=== PATIENT | female | born 1970 | race Hispanic/Latino ===

== ENCOUNTER → 2017-12-05 | Outpatient (CLI) | payer OTHER ==
[~2017-12-05] MED LIST: ALLOPURINOL100 MG PO; ALLOPURINOL300 MG PO; AMOXICILLIN250 MG PO; CEPHALEXIN500 M1; CYTRA-2 ORAL S473 ML PO; EFFER-K 20 MEQ20 MEQ PO; LEVAQUIN500 MG PO; M.V.I. ADULT10 ML PO; OXYBUTYNIN CHLOR5 MG PO; PHENDIMETRAZIN105 MG PO; POTASSIUM CHLO20 ME1 PO
--- NOTE | 2017-12-05 14:19 | Diagnostic Imaging Report ---
PROCEDURE:X-RAY ABDOMEN - KUB COMPARISON:CT dated 04/11/17 INDICATIONS:CALCULUS OF THE KIDNEY FINDINGS: There is a non-obstructed bowel-gas pattern. Numerous calcifications overlying the bilateral renal shadows. The largest measures 0.6 cm. There are no acute osseous abnormalities. L5-S1 degenerative changes. The lung bases are clear. CONCLUSION: Numerous calcifications overlying the bilateral renal shadows, consistent with medullary nephrocalcinosis, noted on prior CT. Dictated by: Rashi Arguello M.D. on 12/05/2017 at 14:23 Electronically approved by: Rashi Arguello M.D. on 12/05/2017 at 14:23
== END ==
LOC: RAD 13:21
PROVIDERS: ATTEND Urology
DX: N20.0 Calculus of kidney (principal)
CPT/HCPCS: 74018

== ENCOUNTER → 2018-01-09 | Day surgery (SDC) | payer OTHER ==
[~2018-01-09] MED LIST changes: +CEFTRIAXONE SOD 1 GM VIAL ONE; +DEXAMETHASONE SOD PHOS INJ 4 MG/ML VIAL ONE; +IOPAMIDOL 300MG/ML 50ML INFUS..BTL IV ONE; +LIDOCAINE HCL 2% LOCAL INJ 5 ML SDV VIAL INJ ONE; +MIDAZOLAM HCL 2 MG/2 ML VIAL ONE; +ONDANSETRON HCL INJ 2 MG/ML VIAL ONE; +POTASSIUM CITR10 MEQ PO; +PROPOFOL IV EMULSION 10 MG/ML 20 ML VIAL ONE; +SCOPOLAMINE 1.5 MG PATCH ONE; +SEVOFLURANE INHAL SOLN 250 ML PEN BTL ONE
--- NOTE | 2018-01-09 09:05 | Diagnostic Imaging Report ---
PROCEDURE:X-RAY ABDOMEN - KUB COMPARISON:12/05/2017. INDICATIONS:PREOPERATIVE XRAY FOR LITHOTRIPSY FINDINGS: Unchanged clusters of calcifications projecting over both renal shadows measuring up to 0.6 cm on the right and 0.5 cm on the left. No suspicious calcifications project over the expected ureteral courses. Bowel gas pattern is nonobstructive. Regional skeletal structures are intact. CONCLUSION: bilateral renal calcifications are grossly unchanged relative to 12/05/2017. Dictated by: Randy Ridley M.D. on 01/09/2018 at 7:38 Electronically approved by: Randy Ridley M.D. on 01/09/2018 at 7:38
--- NOTE | 2018-03-10 01:55 | Operative Report ---
DATE OF PROCEDURE: January 09, 2018 PREOPERATIVE DIAGNOSES 1. Left nephrolithiasis. 2. Urinary tract infections. 3. Urge incontinence. POSTOPERATIVE DIAGNOSIS: 1. Left nephrolithiasis. 2. Urinary tract infections. 3. Urge incontinence. 4. Grade-3 cystocele. 5. Grade-1 rectocele. 6. Urethral hypermobility. OPERATIONS PERFORMED: Note these were all staged procedures as part of multistage, multistep process of managing patient's urolithiasis. 1. Left-sided extracorporeal shock lithotripsy (separate procedure performed for the nephrolithiasis). 2. Cystourethroscopy with bilateral ureteral catheterization and retrograde ureteropyelography (separate procedure performed for the urinary tract infections). 3. Interpretation of retrograde ureteropyelography. 4. Supervision of fluoroscopy. No radiologist present. 5. Pelvic examination under anesthesia. ANESTHESIA: General. CLINICAL SUMMARY: Clemencia Garza is a 47-year-old woman with bilateral urolithiasis. She was brought for the above procedures. She is aware of the risks of bleeding, infection, injury to adjacent structures, need for additional procedures, and elected proceed. OPERATIVE PROCEDURE IN DETAIL: Informed consent was verified. Clemencia Garza was properly identified, taken to operating room, placed on the lithotripsy table in supine position. Anesthesia was uneventfully begun. The patient's 5-mm upper caliceal stone on left-hand side, as well as 6-mm lower caliceal stone on left hand side were both localized with biplanar fluoroscopy. Total of 3000 shocks were delivered splitting them between the stones. Fragmentation was noted. The patient was carefully and gently repositioned in dorsal lithotomy position with all pressure points well padded. Her genitalia were prepared and draped in usual sterile fashion. A 22.5-Divehi cystoscope sheath with obturator in place was atraumatically inserted in patient's urethra and bladder was drained. Panendoscopy revealed no suspicious gross lesions, no tumors, no stones, and no diverticula. Normally positioned and configured ureteral orifices were identified. A ureteral catheter was utilized to cannulate each ureter and retrograde ureteropyelography performed. Interpretation of retrograde ureteropyelography: Contrast was instilled in retrograde fashion bilaterally. The left-hand side exhibited filling defects in the upper and lower pole calices, where we treated the patient's stones. We did visualize a stone on the right-hand side. This stone was not treated. The patient's bladder was drained. Cystoscope was withdrawn. Pelvic examination under anesthesia revealed grade-3 cystocele, grade-1 rectocele with urethral hypermobility present. No abnormal palpable masses could be appreciated. The patient was then uneventfully reversed from anesthesia and taken to recovery room in stable condition. There were no complications to procedure. She tolerated the procedure well. Plans will be to return the patient to the operating room for a right ESWL in the near future. Job#: [id number] CQ
== END | disposition home or self-care (01) ==
LOC: OR 06:03
PROVIDERS: ATTEND Urology
DX: N20.0 Calculus of kidney (principal); N39.0 Urinary tract infection, site not specified; N13.30 Unspecified hydronephrosis; N25.89 Other disorders resulting from impaired renal tubular function; N39.41 Urge incontinence; N81.10 Cystocele, unspecified; N81.6 Rectocele; N36.41 Hypermobility of urethra; E66.9 Obesity, unspecified; Z68.41 Body mass index [BMI] 40.0-44.9, adult
CPT/HCPCS: 50590; 74018; 81025; J0696; J1100; J2001; J2250; J2405; Q9967

== ENCOUNTER → 2018-03-13 | Day surgery (SDC) | payer OTHER ==
[~2018-03-13] MED LIST changes: +FENTANYL CITRATE/PF 100MCG/2 ML INJ ONE; -IOPAMIDOL 300MG/ML 50ML INFUS..BTL IV ONE; +MULTI-VITAMIN1 EACH; +POTASSIUM CHLORIDE 20MEQ/100ML 100 ML IV ONE; -SCOPOLAMINE 1.5 MG PATCH ONE
[2018-03-13 09:40] LABS: ANION GAP 13.8 mmol/L (8-16)
[2018-03-13 09:42] LABS: POTASSIUM 2.8 mmol/L (3.6-5.1)
[2018-03-13 09:53] LABS: CALCIUM 10.2 mg/dL (8.4-10.2)
--- NOTE | 2018-03-13 12:37 | Diagnostic Imaging Report ---
PROCEDURE:X-RAY ABDOMEN - KUB COMPARISON:KUB 12/05/[address] 04/11/2017. INDICATIONS:PRE OPERATIVE KUB FOR KIDNEY STONES FINDINGS: Numerous bilateral renal calcifications are noted, measuring up to 6 mm on the right and 5 mm on the left. There is a non-obstructive bowel-gas pattern. Moderate amount of stool in the colon. There are no acute osseous abnormalities. The lung bases are clear. CONCLUSION: Numerous calcifications overlying the bilateral renal shadows, consistent with previously demonstrated medullary nephrocalcinosis on CT. Dictated by: MATHEUS LZU M.D. on 03/13/2018 at 9:07 Electronically approved by: MATHEUS LUZ M.D. on 03/13/2018 at 9:07
[2018-03-13 13:30] VITALS: BP 125/73
--- NOTE | 2018-04-21 01:56 | Operative Report ---
DATE OF PROCEDURE: March 13, 2018 PREOPERATIVE DIAGNOSIS: Right nephrolithiasis. POSTOPERATIVE DIAGNOSIS: Right nephrolithiasis. OPERATIONS PERFORMED 1. Staged right-sided extracorporeal shock wave lithotripsy. 2. Supervision of fluoroscopy. No radiologist present. ANESTHESIA: General. COMPLICATIONS: None. CLINICAL SUMMARY: Clemencia Garza is a 47-year-old woman with recurrent bilateral nephrolithiasis. She is brought for a staged treatment. She is aware of the risks of bleeding, infection, injury to adjacent structures, need for additional procedures and elected to proceed. OPERATIVE PROCEDURE IN DETAIL: Informed consent was verified. Clemencia Garza was properly identified, taken to the operating room, placed on the lithotripsy table in supine position. Anesthesia was uneventfully begun. The patient's right upper pole and right middle pole stones were localized with biplanar fluoroscopy. A total of 3000 shocks were delivered with fragmentation noted. We did not treat the right lower pole and we did not treat the left side. The patient was then uneventfully reversed from anesthesia and taken to recovery room in stable condition. There were no complications during the procedure. She tolerated the procedure well. Explicit postop instructions were given. We will return the patient back to the operating room to perform another unilateral ESWL. Job#: [id number] GE cc:LINDA ISLAS MD
== END | disposition home or self-care (01) ==
LOC: OR 07:22
PROVIDERS: ATTEND Urology
DX: N20.0 Calculus of kidney (principal); N25.89 Other disorders resulting from impaired renal tubular function
CPT/HCPCS: 36415; 50590; 74018; 80048; 81025; J0696; J1100; J2001; J2250; J2405; J3480

== ENCOUNTER → 2018-07-10 | Day surgery (SDC) | payer OTHER ==
[~2018-07-10] MED LIST changes: -CEFTRIAXONE SOD 1 GM VIAL ONE; +CEFTRIAXONE SOD 1 GM/NS 50 ML 50 ML IV ONE; -FENTANYL CITRATE/PF 100MCG/2 ML INJ ONE; -ONDANSETRON HCL INJ 2 MG/ML VIAL ONE; +ONDANSETRON HCL INJ 2MG/ML 2ML 2 MG/ML VIAL ONE; -POTASSIUM CHLORIDE 20MEQ/100ML 100 ML IV ONE
--- NOTE | 2018-07-10 08:58 | Diagnostic Imaging Report ---
Abdomen, 2 views dated 07/10/2018 at 8:23 AM. History: Renal stones. Comparison: KUB dated 03/13/2018 Findings: Multiple renal stones are present overlying both renal outlines. The largest is in the right lower pole measuring 8.2 mm. The intestinal gas pattern is nonobstructive. There no masses. The osseous structures are intact. IMPRESSION: Bilateral renal stones. Signed by: Dr. Juni Schroeder DO on 07/10/2018 8:55 AM
[2018-07-10 10:30] VITALS: BP 110/62
--- NOTE | 2018-08-03 10:08 | Operative Report ---
DATE OF PROCEDURE: 07/10/2018 SURGEON: Vince Barnett MD PREOPERATIVE DIAGNOSIS: Nephrolithiasis. POSTOPERATIVE DIAGNOSIS: Nephrolithiasis. OPERATIONS PERFORMED: 1. Staged left-sided extracorporeal shockwave lithotripsy. 2. Supervision of fluoroscopy, no radiologist was present. ANESTHESIA: General. COMPLICATIONS: None. CLINICAL SUMMARY: Clemencia Garza is a 47-year-old woman with nephrolithiasis. She was brought for a staged procedure. She is aware of the risks of bleeding, infection, injury to the adjacent structures, need for additional procedures, and elected to proceed. PROCEDURE IN DETAIL: Informed consent was verified. Clemencia Garza was preoperatively identified, taken to the operating room, and placed on the lithotripsy table in supine position. Anesthesia was uneventfully begun. The patient's left nephrolithiasis was localized with biplanar fluoroscopy. Total of 3000 shocks were delivered to the upper calyceal and mid calyceal stones with excellent fragmentation. The patient was then uneventfully reversed from anesthesia and taken to the recovery room in stable condition. There were no complications to the procedure. The patient tolerated the procedure well. We will plan on returning the patient to the operating room in about a month for another ESWL. Vince Barnett MD [place]/MODL /[id number] cc: Lavon Au MD
== END | disposition home or self-care (01) ==
LOC: OR 07:21
PROVIDERS: ATTEND Urology
DX: N20.0 Calculus of kidney (principal); E66.01 Morbid (severe) obesity due to excess calories
CPT/HCPCS: 50590; 74018; 81025; J0696; J1100; J2001; J2250; J2405; J2704

== ENCOUNTER 2019-01-10 14:00 | Inpatient (IN) | payer OTHER ==
[~2019-01-10] VITALS: Ht 157.5 cm; Wt 110.9 kg
[~2019-01-10 14:00] MED LIST changes: -CEFTRIAXONE SOD 1 GM/NS 50 ML 50 ML IV ONE; -DEXAMETHASONE SOD PHOS INJ 4 MG/ML VIAL ONE; -LIDOCAINE HCL 2% LOCAL INJ 5 ML SDV VIAL INJ ONE; -MIDAZOLAM HCL 2 MG/2 ML VIAL ONE; -ONDANSETRON HCL INJ 2MG/ML 2ML 2 MG/ML VIAL ONE; -PROPOFOL IV EMULSION 10 MG/ML 20 ML VIAL ONE; -SEVOFLURANE INHAL SOLN 250 ML PEN BTL ONE
[2019-01-10 15:10] LABS: BILIRUBIN,URINE NEGATIVE (NEGATIVE); CLARITY,URINE CLEAR (CLEAR); COLOR,URINE COLORLESS (YELLOW); KETONES,URINE NEGATIVE (NEGATIVE); LEUKOCYTE ESTERASE ,URINE NEGATIVE (NEGATIVE); NITRITE,URINE NEGATIVE (NEGATIVE); PROTEIN,URINE DIPSTICK 1+ (NEGATIVE); URINE UROBILINOGEN 0.2 mg/dL (0.2 - 1)
[2019-01-10 15:11] LABS: PREGNANCY TEST, URINE NEGATIVE (NEGATIVE)
[2019-01-10 15:17] LABS: RBC,URINE >50 /HPF (0-5)
[2019-01-10 15:18] LABS: BACTERIA,URINE FEW /HPF; EPITHELIAL CELLS,URINE MANY /LPF
--- NOTE | 2019-01-10 17:04 | Diagnostic Imaging Report ---
CT Abdomen and Pelvis without contrast INDICATION: Flank pain, history of stones TECHNIQUE: Thin collimation axial images obtained from the diaphragm to the level of the pubic symphysis without nonionic intravenous contrast. Dose reduction techniques used: Automated exposure control, adjustment of the mAs and/or kVp according to patient size, standardized low-dose protocol, and/or iterative reconstruction technique. RADIATION DOSE: Total DLP: 889.5 mGy*cm Estimated effective dose: (DLP x 0.015 x size factor) mSv CTDIvol has been reviewed. It is below the limits set by the Radiation Protocol Committee (RPC). COMPARISON: CT abdomen/pelvis 04/11/2017. ABDOMEN FINDINGS: Lung Bases: Clear. The visualized portion of the mediastinum is normal. Liver: Mild steatosis. No mass. Gallbladder: Present and appears normal. No ductal dilatation. Pancreas: Normal attenuation without mass. Spleen: Normal size without mass. Adrenal Glands: No evidence for mass. Kidneys: Right: Medullary nephrocalcinosis with fullness of the renal collecting system and ureter. No perinephric inflammation. No cortical mass. Left: Medullary nephrocalcinosis. No cortical mass or hydronephrosis Lymph Nodes: No enlarged abdominal or retroperitoneal lymph nodes.. Aorta: Normal in diameter. PELVIS FINDINGS: Bowel: Stomach: Normal. Small Bowel: Normal in caliber with normal wall thickness. Large Bowel: Normal in caliber with normal wall thickness. Appendix: Normal. Bladder: Well distended. No mural thickening or calculus. Ureters: Right ureter is distended throughout its course. Calculus in the distal ureter measures 12 mm. Left ureter is normal in diameter throughout its course. However, there is a calculus in the proximal ureter measuring 4 mm. The uterus is present and normal in morphology. No adnexal mass. Peritoneum/retroperitoneum: No free fluid or fluid collection. Bones: No focal osseous lesions. Mild degenerative changes of the spine and SI joints.. IMPRESSION: 1. Bilateral ureteral calculi. Calculus in the distal right ureter is obstructing. Moderate right hydroureteronephrosis. 2. Bilateral intrarenal calculi consistent with medullary nephrocalcinosis. 3. Mild steatosis. Signed by: Dr. Renee Ochoa MD on 01/10/2019 5:00 PM
[2019-01-10 17:41] LABS: BASOPHILS % 0.4 % (0.0-1.0); EOSINOPHILS # (AUTO) 0.1 (0.0-0.4); EOSINOPHILS % 0.8 % (0.0-6.0); HEMATOCRIT 47.8 % (34.2-44.1); HEMOGLOBIN 15.1 g/dL (12.0-16.0); LYMPHOCYTES # (AUTO) 1.3 (1.0-3.2); MEAN CORPUSCULAR HEMOGLOBIN 29.7 pg (28-32); MEAN CORPUSCULAR HGB CONC 31.6 g/dL (31-35); MEAN CORPUSCULAR VOLUME 94.1 fL (81-99); MONOCYTES # (AUTO) 0.7 (0.2-0.8); MONOCYTES % 6.9 % (4.4-11.3); NEUTROPHILS # (AUTO) 8.4 (2.1-6.9); NEUTROPHILS % 79.3 % (38.7-80.0); PLATELET COUNT 276 x10e3/uL (140-360); RED BLOOD COUNT 5.08 x10e6/uL (3.6-5.1); RED CELL DISTRIBUTION WIDTH 13.8 % (11.7-14.4)
[2019-01-10 18:13] LABS: ALBUMIN 3.8 g/dL (3.5-5.0); ALBUMIN/GLOBULIN RATIO 0.9 (0.8-2.0); ANION GAP 16.3 mmol/L (8-16); CREATININE, SERUM 2.41 mg/dL (0.57-1.11); POTASSIUM 3.3 mmol/L (3.5-5.1)
[2019-01-10] MEDS ORDERED: ONDANSETRON HCL INJ 2MG/ML 2ML 2 MG/ML VIAL IV PRN (18:30)
[2019-01-10] MEDS ORDERED: POTASSIUM CHLORIDE 20 MEQ TAB CR PO STA (18:40)
[2019-01-10] MEDS ORDERED: SODIUM CHLORIDE 0.9% 1000ML 1,000 ML ONE (18:50)
[2019-01-10] MEDS: SODIUM CHLORIDE 0.9% 1000ML 1,000 ML IV SCH (18:54)
[2019-01-10] MEDS: CEFTRIAXONE SOD 1 GM/NS 50 ML 50 ML IV SCH (18:54)
[2019-01-10 20:35] VITALS: BP 143/72
--- NOTE | 2019-01-10 21:12 | NUR ---
Pt resting comfortably in bed. Pt c/o right sided flank pain 4/10 at this time but does not want pain medication. Bed is in low locked position and call light is in reach.
[2019-01-11] VITALS (9 sets, daily range): BP systolic 102–132; BP diastolic 51–61
[2019-01-11] MEDS: CEFTRIAXONE SOD 1 GM/NS 50 ML 50 ML IV SCH ×2 (05:46→17:28)
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
--- NOTE | 2019-01-11 07:05 | NUR ---
REPORT GIVEN TO KEYANNA AMARAL AT THIS TIME. PT RESTING IN BED. CALL LIGHT IS IN REACH.
--- NOTE | 2019-01-11 07:10 | NUR ---
PT OFF UNIT FOR OR PROCEDURE
[2019-01-11] MEDS ORDERED: B&O 60MG R/S 60 MG SUPP PR ONE (07:21)
[2019-01-11] MEDS ORDERED: IOPAMIDOL 610MG/1ML 300 MG/ML VIAL IV ONE (07:21)
--- NOTE | 2019-01-11 08:45 | NUR ---
RECEIVED REPORT FROM JUAN IN PACU AWAITING FOR PT TO ARRIVE TO FLOOR
--- NOTE | 2019-01-11 08:53 | NUR ---
PT RESTING IN BED AA0X3 PT FAMILY AT BEDSIDE PT IS IN NO S.S OF DISTRESS DENIES PAIN PT HAS PHIPPS CATH WITH BLOODY URINE NOTED NO CLOTS EVIDENT PT IS ON IV FLUIDS TO THE LEFT ARM SITE IS CLEAN AND DRY WILL CONTINUE TO MONITOR PT CLOSELY SIDE RAILSX2, BED WHEELS LOCKED, CALL LIGHT IS WITHIN EASY REACH, INSTRUCTED TO CALL FOR ASSISTANCE IF NEEDED
[2019-01-11] MEDS: SODIUM CHLORIDE 0.9% 1000ML 1,000 ML IV SCH ×2 (09:16→22:00)
[2019-01-11] MEDS ORDERED: LIDOCAINE HCL 2% LOCAL INJ 5 ML SDV VIAL INJ ONE (15:00)
[2019-01-11] MEDS ORDERED: DEXAMETHASONE SOD PHOS INJ 4 MG/ML VIAL ONE (15:00)
[2019-01-11] MEDS ORDERED: ONDANSETRON HCL INJ 2MG/ML 2ML 2 MG/ML VIAL ONE (15:00)
[2019-01-11] MEDS ORDERED: PROPOFOL IV EMULSION 10 MG/ML 20 ML VIAL ONE (15:00)
[2019-01-11] MEDS ORDERED: SEVOFLURANE INHAL SOLN 250 ML PEN BTL ONE (15:00)
[2019-01-11] MEDS ORDERED: FENTANYL CITRATE/PF 100MCG/2 ML INJ ONE (15:13)
[2019-01-11] MEDS ORDERED: MIDAZOLAM HCL 2 MG/2 ML VIAL ONE (15:13)
--- NOTE | 2019-01-11 22:00 | NUR ---
Wagner care given.strain urine.v/s stable.stable condition.no pain voiced.
[2019-01-12] VITALS (8 sets, daily range): BP systolic 92–115; BP diastolic 46–63
--- NOTE | 2019-01-12 02:21 | NUR ---
Resting in the bed.phone and calllight within reach.
--- NOTE | 2019-01-12 05:27 | NUR ---
Blood pressure checked 98/60mmof hg.
[2019-01-12] MEDS: CEFTRIAXONE SOD 1 GM/NS 50 ML 50 ML IV SCH ×2 (06:00→17:51)
[2019-01-12 06:07] LABS: BASOPHILS # (AUTO) 0.1 (0.0-0.1); BASOPHILS % 0.5 % (0.0-1.0); EOSINOPHILS # (AUTO) 0.1 (0.0-0.4); EOSINOPHILS % 0.7 % (0.0-6.0); HEMATOCRIT 40.9 % (34.2-44.1); HEMOGLOBIN 13.2 g/dL (12.0-16.0); LYMPHOCYTES # (AUTO) 2.1 (1.0-3.2); LYMPHOCYTES % 20.7 % (18.0-39.1); MEAN CORPUSCULAR HEMOGLOBIN 30.1 pg (28-32); MEAN CORPUSCULAR HGB CONC 32.3 g/dL (31-35); MEAN CORPUSCULAR VOLUME 93.2 fL (81-99); MONOCYTES # (AUTO) 0.6 (0.2-0.8); MONOCYTES % 6.3 % (4.4-11.3); NEUTROPHILS # (AUTO) 7.1 (2.1-6.9); NEUTROPHILS % 71.3 % (38.7-80.0); PLATELET COUNT 248 x10e3/uL (140-360); RED BLOOD COUNT 4.39 x10e6/uL (3.6-5.1); RED CELL DISTRIBUTION WIDTH 14.1 % (11.7-14.4)
[2019-01-12 06:46] LABS: ALBUMIN 2.9 g/dL (3.5-5.0); ALBUMIN/GLOBULIN RATIO 0.9 (0.8-2.0); ANION GAP 12.7 mmol/L (8-16); CALCIUM 8.2 mg/dL (8.4-10.2); CREATININE, SERUM 1.52 mg/dL (0.57-1.11); MAGNESIUM 1.9 MG/DL (1.3-2.1)
[2019-01-12 06:56] LABS: POTASSIUM 2.7 mmol/L (3.5-5.1)
[2019-01-12] MEDS ORDERED: POTASSIUM CHLORIDE 20 MEQ TAB CR PO NR ×2 (07:00→12:00)
--- NOTE | 2019-01-12 07:04 | NUR ---
Bed side shift report given to the oncoming Rn.stable condition.
--- NOTE | 2019-01-12 09:42 | Diagnostic Imaging Report ---
Abdomen , one view History:Follow-up, renal calculus Comparison:CT abdomen and pelvis 01/10/2019 Findings: Nonobstructive bowel gas pattern. No pneumoperitoneum. No definite bowel pneumatosis or portal venous gas. Interval insertion of bilateral ureteral stents, with expected configuration. The previous calculus within the left proximal ureter is not definitively seen. There is a 9 mm oblong calcification along the distal aspect of the right ureteral stent course at the level of the first or second sacral segment which probably represents the previous obstructing calculus within the distal right ureter. Extensive bilateral renal calculi are again noted. Impression: 1. Interval insertion of bilateral ureteral stents, with expected configuration. 2. A 9 mm oblong calcification is noted along the distal aspect of the right ureteral stent at the level the first or second sacral segment. This probably represents the right ureteral obstructing calculus seen on recent CT scan. The left proximal ureteral calculus seen on the previous CT scan is not seen with confidence on this study. Signed by: Harley Farias MD on 01/12/2019 8:57 AM
[2019-01-12] MEDS: SODIUM CHLORIDE 0.9% 1000ML 1,000 ML IV SCH (10:34)
[2019-01-12] MEDS: ACETAMINOPHEN 325 MG TAB PO PRN (11:01)
[2019-01-13] VITALS (9 sets, daily range): BP systolic 99–120; BP diastolic 55–70
[2019-01-13] MEDS: SODIUM CHLORIDE 0.9% 1000ML 1,000 ML IV SCH ×2 (02:35→16:38)
[2019-01-13] MEDS: CEFTRIAXONE SOD 1 GM/NS 50 ML 50 ML IV SCH ×2 (06:17→16:38)
[2019-01-13 06:18] LABS: BASOPHILS # (AUTO) 0.1 (0.0-0.1); BASOPHILS % 0.6 % (0.0-1.0); EOSINOPHILS # (AUTO) 0.1 (0.0-0.4); HEMOGLOBIN 14.3 g/dL (12.0-16.0); LYMPHOCYTES # (AUTO) 1.7 (1.0-3.2); LYMPHOCYTES % 18.9 % (18.0-39.1); MEAN CORPUSCULAR HEMOGLOBIN 30.2 pg (28-32); MEAN CORPUSCULAR HGB CONC 32.5 g/dL (31-35); MEAN CORPUSCULAR VOLUME 92.8 fL (81-99); MONOCYTES # (AUTO) 0.6 (0.2-0.8); MONOCYTES % 6.3 % (4.4-11.3); NEUTROPHILS # (AUTO) 6.6 (2.1-6.9); NEUTROPHILS % 72.6 % (38.7-80.0); PLATELET COUNT 279 x10e3/uL (140-360); RED BLOOD COUNT 4.74 x10e6/uL (3.6-5.1); RED CELL DISTRIBUTION WIDTH 14.4 % (11.7-14.4)
[2019-01-13 07:00] LABS: ALBUMIN 3.2 g/dL (3.5-5.0); ALBUMIN/GLOBULIN RATIO 0.9 (0.8-2.0); ANION GAP 13.4 mmol/L (8-16); CALCIUM 8.3 mg/dL (8.4-10.2); CREATININE, SERUM 1.43 mg/dL (0.57-1.11)
[2019-01-13 07:08] LABS: POTASSIUM 2.4 mmol/L (3.5-5.1)
--- NOTE | 2019-01-13 07:17 | NUR ---
aware of K2.4 and Co2 9. Received orders to give KCL PO
[2019-01-13] MEDS ORDERED: POTASSIUM CHLORIDE 20 MEQ TAB CR PO SCH ×2 (07:30→12:00)
--- NOTE | 2019-01-13 08:50 | NUR ---
20F martinez catheter discontinued as ordered. Tolerated well. Patient due to void
[2019-01-13] MEDS: ACETAMINOPHEN 325 MG TAB PO PRN (08:54)
--- NOTE | 2019-01-13 11:50 | NUR ---
Patient voided without difficulty
[2019-01-13 16:59] LABS: CALCIUM 8.7 mg/dL (8.4-10.2); CREATININE, SERUM 1.27 mg/dL (0.57-1.11)
--- NOTE | 2019-01-13 17:16 | NUR ---
paged on K3.0 CO2 8
[2019-01-13] MEDS ORDERED: POTASSIUM CHLORIDE 20 MEQ TAB CR PO ONE ×2 (17:45→22:00)
--- NOTE | 2019-01-13 17:45 | NUR ---
aware of K3.0 CO2 8. See orders.
--- NOTE | 2019-01-13 19:10 | NUR ---
RECEIVED REPORT, PATIENT AAOX3, STABLE CONDITION. NO NEEDS VOICED AT THIS TIME. INSTRUCTED PATIENT TO CALL FOR ASSISTANCE NEEDED, PATIENT VERBALIZED UNDERSTANDING.
--- NOTE | 2019-01-13 19:20 | NUR ---
Report given to oncoming nurse of patient's status. No s/s of acute distress noted.
[2019-01-14] VITALS (7 sets, daily range): BP systolic 101–137; BP diastolic 53–83
[2019-01-14 06:06] LABS: ALBUMIN 3.2 g/dL (3.5-5.0); ALBUMIN/GLOBULIN RATIO 0.8 (0.8-2.0); ANION GAP 14.3 mmol/L (8-16); CALCIUM 8.7 mg/dL (8.4-10.2); CREATININE, SERUM 1.14 mg/dL (0.57-1.11); POTASSIUM 3.3 mmol/L (3.5-5.1)
[2019-01-14] MEDS: CEFTRIAXONE SOD 1 GM/NS 50 ML 50 ML IV SCH ×2 (06:23→17:00)
[2019-01-14] MEDS: SODIUM CHLORIDE 0.9% 1000ML 1,000 ML IV SCH (07:14)
--- NOTE | 2019-01-14 07:15 | NUR ---
BEDSIDE REPORT GIVEN TO ONCOMING NURSE. PATIENT IN STABLE CONDITION. NO NEEDS VOICED AT THIS TIME. BED LOCKED AND IN LOWEST POSITION, CALL LIGHT WITHIN EASY REACH.
--- NOTE | 2019-01-14 08:40 | NUR ---
Patient cleared to discharge by Dr.Hampel Carmona. aware (covering for ). Dr. Lu aware of K3.3 CO2 7. See orders
[2019-01-14] MEDS ORDERED: POTASSIUM CHLORIDE 20 MEQ TAB CR PO NR (09:00)
[2019-01-14 14:56] LABS: ALBUMIN 3.4 g/dL (3.5-5.0); ALBUMIN/GLOBULIN RATIO 0.9 (0.8-2.0); ANION GAP 14.9 mmol/L (8-16); CALCIUM 8.7 mg/dL (8.4-10.2); CREATININE, SERUM 1.26 mg/dL (0.57-1.11)
[2019-01-14 14:59] LABS: POTASSIUM 2.9 mmol/L (3.5-5.1)
--- NOTE | 2019-01-14 15:03 | NUR ---
paged to notify of K2.9
[2019-01-14] MEDS ORDERED: POTASSIUM CHLORIDE 20 MEQ TAB CR PO ONE (16:00)
[2019-01-14] MEDS ORDERED: POTASSIUM CHL 40 MEQ in SODIUM CHLORIDE 0.9% 1000ML 1,000 ML IV SCH (16:00)
--- NOTE | 2019-01-14 16:32 | Progress Note ---
DATE: SUBJECTIVE: This patient is here with renal colic, renal stone, decreased potassium, and also history of acute renal failure. The patient has a history of arteriograms of acidosis and has severe hyperkalemia. Asymptomatic, no chest pain, no shortness of breath. No nausea, vomiting, or diarrhea. No constipation. No rectal bleeding and no diarrhea. OBJECTIVE: VITAL SIGNS: Temperature is 97.4, pulse of 74, respirations of 20, and blood pressure is 101/54. HEENT: Normocephalic, atraumatic. Pupils are reactive to light and accommodation. CVS: S1, S2 normal. Regular rate and rhythm. ABDOMEN: Nontender, nondistended, soft. No CVA tenderness present. LABORATORY VALUES: White count is normal 9.08, hemoglobin and hematocrit of 14.3 and 44. Chemistries show sodium of 142, potassium 2.9, chloride of 121, CO2 was 9, creatinine of 1.26. Estimated GFR is 46. ASSESSMENT: The patient with renal tubular acidosis with renal colic, status post cystoscopy and stent placement. The patient is doing well except for the potassium being low. The patient has RTA. Potassium has been replaced. We will go ahead and continue with IV resuscitation and also with potassium replacement. We will recheck the potassium tomorrow; if potassium is within normal limits, the patient can be discharged home. Further recommendation per clinical course. We will continue to monitor the patient. MD NANDO Mcginnis/MODL /[id number]
--- NOTE | 2019-01-14 19:00 | NUR ---
Report given to oncoming nurse of patient's status. No s/s of acute distress noted.
--- NOTE | 2019-01-14 19:00 | NUR ---
RECEIVED PATIENT IN BEDSIDE REPORT. PATIENT RESTING IN BED AT THIS TIME. NO PAIN REPORTED. NO S&S OF DISTRESS NOTED. L FA 20G IV ASYMPTOMATIC, INTACT, AND PATENT. BED LOCKED IN LOWEST POSITION, SIDE RAILS UPX2, CALL LIGHT IN REACH.
[2019-01-14] MEDS: OXYBUTYNIN CHLORIDE 5 MG TAB PO SCH (20:24)
[2019-01-14] MEDS: CITRIC ACID/SODIUM CITRATE 30 ML UDC PO SCH (20:24)
[2019-01-14] MEDS ORDERED: CITRIC ACID PO SCH (21:00)
[2019-01-14] MEDS ORDERED: SODIUM CITRATE PO SCH (21:00)
--- NOTE | 2019-01-14 22:17 | Progress Note ---
DATE: SUBJECTIVE: The patient feels well. No new complaints. OBJECTIVE: VITAL SIGNS: Stable. Afebrile. GENERAL: No apparent distress. CARDIOVASCULAR: Regular rate and rhythm. LUNGS: Clear to auscultation bilaterally. ABDOMEN: Good bowel sounds. Soft and nontender. EXTREMITIES: No clubbing or cyanosis. NEUROLOGIC: Nonfocal. ASSESSMENT AND PLAN: 1. Kidney stone. Continue with current care per Neurology. 2. Hypokalemia. We will recheck her labs, they are improving. 3. Chronic kidney disease, stage 3. Continue to monitor. Please see hospital chart for full details. MD LINDA Winchester/JOSE /[id number]
[2019-01-15] VITALS: BP 112/57
[2019-01-15 04:00] VITALS: BP 102/50
[2019-01-15] MEDS: CEFTRIAXONE SOD 1 GM/NS 50 ML 50 ML IV SCH (05:53)
[2019-01-15 05:56] LABS: BASOPHILS # (AUTO) 0.1 (0.0-0.1); BASOPHILS % 0.5 % (0.0-1.0); EOSINOPHILS # (AUTO) 0.2 (0.0-0.4); EOSINOPHILS % 2.1 % (0.0-6.0); HEMATOCRIT 42.7 % (34.2-44.1); HEMOGLOBIN 13.3 g/dL (12.0-16.0); LYMPHOCYTES # (AUTO) 2.4 (1.0-3.2); LYMPHOCYTES % 21.2 % (18.0-39.1); MEAN CORPUSCULAR HEMOGLOBIN 29.8 pg (28-32); MEAN CORPUSCULAR HGB CONC 31.1 g/dL (31-35); MEAN CORPUSCULAR VOLUME 95.7 fL (81-99); MONOCYTES # (AUTO) 0.7 (0.2-0.8); MONOCYTES % 5.7 % (4.4-11.3); NEUTROPHILS % 69.6 % (38.7-80.0); PLATELET COUNT 281 x10e3/uL (140-360); RED BLOOD COUNT 4.46 x10e6/uL (3.6-5.1); RED CELL DISTRIBUTION WIDTH 14.6 % (11.7-14.4)
--- NOTE | 2019-01-15 06:00 | NUR ---
PATIENT RESTING IN BED AT THIS TIME. NO PAIN REPORTED. NO S&S OF DISTRESS NOTED.
[2019-01-15 06:27] LABS: ALANINE AMINOTRANSFERASE 13 IU/L (0-55); ALBUMIN 3.1 g/dL (3.5-5.0); ALBUMIN/GLOBULIN RATIO 0.9 (0.8-2.0); ALKALINE PHOSPHATASE 74 IU/L (40-150); ANION GAP 10.9 mmol/L (8-16); BLOOD UREA NITROGEN 18 mg/dL (7-26); BUN/CREATININE RATIO 18 (6-25); CALCIUM 8.3 mg/dL (8.4-10.2); CARBON DIOXIDE 10 mmol/L (22-29); CHLORIDE 125 mmol/L (98-107); CREATININE, SERUM 0.98 mg/dL (0.57-1.11); EST GLOMERULAR FILTRATION RATE > 60 ML/MIN (60-); GLUCOSE 84 mg/dL (74-118); SODIUM 143 mmol/L (136-145)
[2019-01-15 06:32] LABS: POTASSIUM 2.9 mmol/L (3.5-5.1)
--- NOTE | 2019-01-15 06:36 | NUR ---
PATIENT'S POTASSIUM STILL AT 2.9. SPOKE WITH MD ARTIS, NEW ORDERS RECEIVED.
[2019-01-15] MEDS ORDERED: POTASSIUM CHLORIDE 20 MEQ TAB CR PO STA (06:37)
--- NOTE | 2019-01-15 07:30 | Progress Note ---
DATE: SUBJECTIVE: The patient came in with urethral obstruction, urethral stone status post stent. The patient has been kept because of hypokalemia, secondary to renal tubular acidosis. Currently asymptomatic. Had some hyperesthesias in the mouth area, but has dissipated since. OBJECTIVE: VITAL SIGNS: Temperature is 97.5, pulse is 70, respirations of 20, and blood pressure is 102/50. HEENT: Normocephalic and atraumatic. Pupils are reactive. CVS: S1 and S2 normal. Regular rate and rhythm. ABDOMEN: Nontender and nondistended. EXTREMITIES: No clubbing, no cyanosis, no edema. MEDICATIONS: The patient is on Rocephin 1 g, sodium citrate, oxybutynin, potassium chloride with fluids and also aspirin allopurinol. LABORATORY DATA: Laboratory values are pending. Last potassium was 2.9. MICROBIOLOGY: No growth. Blood cultures and urine cultures are negative too. ASSESSMENT: 1. The patient with a renal tubular acidosis, status post cystoscopy and stent placement for urethral obstruction and for colic. 2. Renal tubular acidosis. 3. hypokalemia. 4. Gout. PLAN: Plan is to discharge the patient today depending on the potassium levels. The patient can have replacement as needed. Further recommendation per clinical course, should be followed up with Dr. Au. MD RAYMOND McginnisJ/MODL /[id number]
[2019-01-15 07:51] VITALS: BP 109/53
[2019-01-15] MEDS: CITRIC ACID/SODIUM CITRATE 30 ML UDC PO SCH (07:51)
[2019-01-15] MEDS: OXYBUTYNIN CHLORIDE 5 MG TAB PO SCH (07:51)
[2019-01-15 08:01] VITALS: BP 109/55
[2019-01-15] MEDS ORDERED: ALLOPURINOL 300 MG TAB PO SCH (09:00)
--- NOTE | 2019-01-15 09:24 | NUR ---
DISCHARGE INSTRUCTIONS GIVEN. PT VERBALIZED UNDERSTANDING IV DC PRESSURE DRESSING APPLIED AND TAPED SPOKE WITH MD ARTIS REGARDING POTASSIUM REPLACEMENT MD VELEZ WITH SENDING PT HOME AFTER 60 PO OF K PT IS GETTING DRESSED TO HOME AT THIS TIME
[2019-01-15] MEDS ORDERED: ONDANSETRON HCL 4 MG ORAL DISINTEGRATING TAB PO PRN (09:30)
--- NOTE | 2019-01-15 09:37 | NUR ---
PT OFF UNIT TO HOME AT THIS TIME VIA WHEEL CHAIR
--- NOTE | 2019-01-23 06:32 | Discharge Summary ---
DISCHARGE DIAGNOSES: 1. Kidney stone. 2. Chronic kidney disease, stage 3. 3. Hypokalemia. 4. Renal tubular acidosis. HISTORY OF PRESENT ILLNESS AND HOSPITAL COURSE: See hospital chart for full details. The patient is a young female with history of renal tubular acidosis and chronic kidney disease stage 3 with multiple history of kidney stones, who presented with renal colic secondary to a kidney stone that had to be taken care by her urologist, Dr. Snow and Dr. Barnett. She did have to have OR intervention with stent placement which she tolerated well. She did have evidence of hypokalemia secondary to her renal tubular acidosis, which was replaced vigorously and at the time of discharge levels were good. She is discharged home with continuation of home medications and she will follow up in 1 to 2 weeks with me as well as 1 to [address] Snow and Dr. Barnett. Please see hospital chart for full details. MD LINDA Winchester/JOSE /[id number]
[2019-02-05] MEDS ORDERED: AUGMENTIN 500-1 EACH PO (07:10)
--- NOTE | 2019-03-05 05:04 | Operative Report ---
DATE OF PROCEDURE: 01/11/2019 SURGEON: Vince Barnett MD POSTOPERATIVE DIAGNOSES: 1. Bilateral hydronephrosis due to stone. 2. Urinary tract infection. 3. Microscopic hematuria. POSTOPERATIVE DIAGNOSES: 1. Bilateral hydronephrosis due to stone. 2. Urinary tract infection. 3. Microscopic hematuria. 4. Grade 2-3 cystocele. 5. Grade 2 rectocele. 6. Urethral hypermobility. OPERATIONS PERFORMED: 1. Cystourethroscopy with bilateral ureteral catheterization and retrograde ureteropyelography (separate procedure performed for the hematuria and urinary tract infections). 2. Interpretation of retrograde ureteropyelography. 3. Supervision of fluoroscopy, no radiologist present. 4. Cystourethroscopy with insertion of bilateral indwelling ureteral stents (separate procedure performed to relieve the hydronephrosis). 5. Pelvic examination under anesthesia. ANESTHESIA: General. COMPLICATIONS: None. CLINICAL SUMMARY: Clemencia Garza is a 48-year-old woman with recurrent urolithiasis. She was admitted with acute obstruction and bilateral ureteral obstruction with bilateral hydronephrosis. She is aware of the risks of bleeding, infection, injury to adjacent structures, need for additional procedures and elected to proceed. OPERATIVE PROCEDURE IN DETAIL: Informed consent was verified. Clemencia Garza was properly identified, taken to the operating room, placed on the cystoscopy table in supine position. Anesthesia was uneventfully begun. The patient was then carefully gently repositioned in the dorsal lithotomy position with all pressure points well padded. Her genitalia were prepared and draped in usual sterile fashion. The cystoscope sheath with the visual obturator in place was atraumatically inserted into the patient's urethra and bladder was drained. Panendoscopy of the urinary bladder revealed no suspicious mucosal lesions, no tumors, no stones, and no diverticula. Normally positioned and configured ureteral orifices were identified. The ureteral catheter was used to cannulate each ureter and retrograde ureteropyelograms were performed. With cystoscopic and fluoroscopic guidance utilizing various wires and ureteral catheters, we placed bilateral stents, coiled them in the patient's kidneys as well as the patient's bladder. The retaining suture was cut short. Interpretation of retrograde ureteropyelography contrast was instilled in retrograde fashion bilaterally. There was a large impacted stone in the distal right ureter where the ureter courses over the pelvic inlet. On the left hand side, there was a filling defect corresponding to a stone in the distal ureter approximately 5-6 cm proximal to the ureteral orifice. There was bilateral hydronephrosis worse on the right. At the end of the procedure, there were stents coiled nicely with one coil in the patient's kidneys and one coil in the patient's bladder on either side. The patient's bladder was drained. The cystoscope was withdrawn. Pelvic examination revealed a grade 2-3 cystocele, grade 2 rectocele. There was urethral hypomobility present. There were no obvious mucosal lesions that were noted. There were no abnormal palpable pelvic masses that could be appreciated. The patient was then uneventfully reversed from anesthesia and taken to recovery room in stable condition. Explicit postop instructions were given. We will proceed with ongoing hospital management and of course following discharge, the patient will be brought to the operating room for a number of stone related procedures performed at different occasions. MD NEO Posadas/BREEZYL /[id number]
== END 2019-01-15 09:37 | disposition home or self-care (01) | DRG 660 ==
LOC: ER 14:00 → ERHOLD 18:29 → MED/SURG 20:30
PROVIDERS: ADMIT Internal Medicine; ATTEND Internal Medicine
PROC: BT141ZZ Fluoroscopy of Kidneys, Ureters and Bladder using Low Osmolar Contrast (ICD-10-PCS; 2019-01-11)
PROC: 0T788DZ Dilation of Bilateral Ureters with Intraluminal Device, Via Natural or Artificial Opening Endoscopic (ICD-10-PCS; principal; 2019-01-11 07:43)
DX: N13.6 Pyonephrosis (principal); Z68.41 Body mass index [BMI] 40.0-44.9, adult; I12.9 Hypertensive chronic kidney disease with stage 1 through stage 4 chronic kidney disease, or unspecified chronic kidney disease; N17.9 Acute kidney failure, unspecified; N39.0 Urinary tract infection, site not specified; N23 Unspecified renal colic; N18.3 Chronic kidney disease, stage 3 (moderate); E87.6 Hypokalemia; E66.01 Morbid (severe) obesity due to excess calories; N25.89 Other disorders resulting from impaired renal tubular function
CPT/HCPCS: 36415; 74018; 74176; 74420; 80048; 80053; 81001; 81025; 83605; 83735; 83970; 84550; 85025; 87040; 87086; 99284; C1758; C2617; J0696; J1100; J2001; J2250; J2405; J3010; J3480; J7030

== ENCOUNTER → 2019-02-05 | Day surgery (SDC) | payer OTHER ==
[~2019-02-05] MED LIST changes: +AUGMENTIN 500-1 EACH PO; +CEFTRIAXONE SOD 1 GM/NS 50 ML 50 ML IV ONE; +DEXAMETHASONE SOD PHOS INJ 4 MG/ML VIAL ONE; +FENTANYL CITRATE/PF 100MCG/2 ML INJ ONE; +LIDOCAINE HCL 2% LOCAL INJ 5 ML SDV VIAL INJ ONE; +METOCLOPRAMIDE HCL 10 MG/2ML VIAL ONE; +MIDAZOLAM HCL 2 MG/2 ML VIAL ONE; +ONDANSETRON HCL INJ 2MG/ML 2ML 2 MG/ML VIAL ONE; +PROPOFOL IV EMULSION 10 MG/ML 20 ML VIAL ONE; +SEVOFLURANE INHAL SOLN 250 ML PEN BTL ONE
--- NOTE | 2019-02-05 07:10 | NUR ---
SPIRITUAL CARE - Pre-Surgery Assessment: Pt reported supportive attention from family and friends. Intervention: I provided pastoral presence, hospitality, and sympathetic listening. I acquainted pt with availability of head automatic sawyer while hospitalized. Outcome: Pt expressed appreciation for visit. No need for follow up indicated at this time. SYMONE HEWITT Telemetry Rn Spiritual Care Department O: [phone] Pager: [phone] ([phone] number calling from)
--- NOTE | 2019-02-05 08:39 | Diagnostic Imaging Report ---
Abdomen, 1 view. History: Preop, kidney stones. Findings: Multiple calcifications are projected over both kidneys, the largest on the right in the lower pole measuring approximately 10 mm and the largest on the left in lower pole measuring approximately 5 mm. Bilateral internal ureteral stents are present extending from the kidneys to the bladder. Air is scattered throughout nondilated small and large bowel. There are no masses. The osseous structures are intact. IMPRESSION: Multiple bilateral renal calculi. Signed by: Waldemar Silveira on 02/05/2019 8:36 AM
[2019-02-05 09:51] LABS: ANION GAP 13.4 mmol/L (8-16); BLOOD UREA NITROGEN 16 mg/dL (7-26); BUN/CREATININE RATIO 19 (6-25); CALCIUM 8.8 mg/dL (8.4-10.2); CARBON DIOXIDE 18 mmol/L (22-29); CHLORIDE 112 mmol/L (98-107); CREATININE, SERUM 0.83 mg/dL (0.57-1.11); EST GLOMERULAR FILTRATION RATE > 60 ML/MIN (60-); GLUCOSE 103 mg/dL (74-118); POTASSIUM 3.4 mmol/L (3.5-5.1); SODIUM 140 mmol/L (136-145)
[2019-02-05 10:35] VITALS: BP 127/71
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
== END | disposition home or self-care (01) ==
LOC: OR 06:44
PROVIDERS: ATTEND Urology
DX: N20.0 Calculus of kidney (principal); H91.90 Unspecified hearing loss, unspecified ear; M19.90 Unspecified osteoarthritis, unspecified site
CPT/HCPCS: 36415; 50590; 74018; 80048; 81025; J0696; J1100; J2001; J2250; J2405; J2704; J2765; J3010

== ENCOUNTER → 2019-03-12 | Day surgery (SDC) | payer OTHER ==
[~2019-03-12] MED LIST changes: +B&O 60MG R/S 60 MG SUPP PR ONE; +GENTAMICIN 80MG/NS 100 ML 100 ML IV ONE; +IOPAMIDOL 300MG/ML 50ML INFUS..BTL IV ONE; -METOCLOPRAMIDE HCL 10 MG/2ML VIAL ONE
--- NOTE | 2019-03-12 07:10 | NUR ---
SPIRITUAL CARE - Pre-Surgery Assessment: Pt in bed. Pt reported supportive attention from family and friends. Intervention: I provided pastoral presence, hospitality, and sympathetic listening. I acquainted pt with availability of eyeletter while hospitalized. Outcome: Pt expressed appreciation for visit. No need for follow up indicated at this time. SYMONE Ngolain Spiritual Care Department O: [phone] Pager: [phone] ([phone] number calling from)
[2019-03-12 10:15] VITALS: BP 123/84
--- NOTE | 2019-05-22 23:46 | Operative Report ---
DATE OF PROCEDURE: 03/12/2019 SURGEON: Vince Barnett MD PREOPERATIVE DIAGNOSES: 1. Left nephrolithiasis. 2. Right ureterolithiasis. 3. Right indwelling ureteral stent. POSTOPERATIVE DIAGNOSES: 1. Left nephrolithiasis. 2. Right ureterolithiasis. 3. Right indwelling ureteral stent. 4. Urethral hypermobility. 5. Grade 2 to 3 cystocele. 6. Rectocele. OPERATIONS PERFORMED: Note these were all staged procedures as part of her multi-staged and multi-step process of managing the patient's urolithiasis. 1. Left-sided extracorporeal shockwave lithotripsy (separate procedure performed for the left nephrolithiasis). 2. Cystourethroscopy with complicated removal of right indwelling ureteral stent (separate procedure performed with separate scope for the diagnosis of the stent). 3. Right ureteroscopy with holmium laser lithotripsy, stone extraction, and placement of stent (separate procedure performed for the right ureterolithiasis). 4. Radiological services for supervision and interpretation of ureteroscopy. 5. Interpretation of retrograde ureteropyelography. 6. Supervision of fluoroscopy, no radiologist present. 7. Pelvic examination under anesthesia. ANESTHESIA: General. COMPLICATIONS: None. CLINICAL SUMMARY: Clemencia Garza is a 48-year-old woman with severe recurrent stone disease. She has metabolic disorder that is causing these stones. She is brought to the operating room to , perform another step in her stone management. She is aware of the risks of bleeding, infection, injury to adjacent structures, definite need for multiple additional procedures, and she elected to proceed. OPERATIVE PROCEDURE IN DETAIL: Informed consent was verified. Clemencia Garza was properly identified, taken to the operating room, placed on the lithotripsy table in supine position. Anesthesia was uneventfully begun. The patient's left nephrolithiasis was localized with biplanar fluoroscopy. A total of 3000 shocks were delivered to the 7 mm stone in the upper calyx, a 5 mm stone in the mid calyx, and the 6 mm stone in the lower calyx. Excellent fragmentation was noted. The patient was then carefully and gently repositioned in dorsal lithotomy position with all pressure points well padded. Her genitalia were prepared and draped in usual sterile fashion. The cystoscope sheath with obturator in place was atraumatically inserted in the patient's urethra and bladder was drained. Panendoscopy revealed no suspicious mucosal lesions, no tumors, and no stones. A stent was noted to be emerging from the right ureteral orifice. A guidewire was then placed alongside of the stent and guided to the level of the patient's kidney. The stent was then grasped, completely removed and discarded. The semi-rigid ureteroscope was then brought up alongside the guidewire and guided to the level of the patient's impacted and very large ureteral stone. Holmium laser lithotripsy was then carried out to fragment the stone into multiple smaller fragments and the Nitinol tipless basket was then utilized to extract the largest of fragments and sweep down the smaller fragments. Fine sand remained, and this was irrigated loose from the mucosa. With cystoscopic under fluoroscopic guidance, a right-sided indwelling ureteral stent was then placed. It was coiled in the patient's kidney as well as the patient's bladder. The retaining suture was cut short. Interpretation of retrograde ureteropyelography contrast was instilled in a retrograde fashion on the right-hand side. There was chronic appearing fullness on the right-hand side. There were filling defects within the kidney corresponding to two stones that are known to be present preoperatively that were not treated at this procedure. The stent was in good position, coiled the patient's kidney as well as the patient's bladder at the end of the case. The patient's bladder was drained. Cystoscope was withdrawn. Pelvic examination revealed urethral hypermobility with a grade 2 to 3 cystocele and rectocele as well. No suspicious mucosal lesions were identified and there were no abnormal palpable pelvic masses could be appreciated. The patient was then uneventfully reversed from anesthesia and taken to recovery room in stable condition. Explicit postoperative instructions were given and we will return the patient to the operating room for left versus right ESWL and the next step in management. MD NEO Posadas/JOSE /[id number]
== END | disposition home or self-care (01) ==
LOC: OR 05:56
PROVIDERS: ATTEND Urology
DX: N20.2 Calculus of kidney with calculus of ureter (principal); Z01.812 Encounter for preprocedural laboratory examination; N36.41 Hypermobility of urethra; N81.10 Cystocele, unspecified; N81.6 Rectocele; Z96.0 Presence of urogenital implants
CPT/HCPCS: 50590; 52356; 74018; 81025; 88300; C2617; J0696; J1100; J1580; J2001; J2250; J2405; J2704; J3010; Q9967

== ENCOUNTER 2019-07-12 08:51 | Inpatient (IN) | payer OTHER ==
[2019-07-12] VITALS (9 sets, daily range): BP systolic 92–109; BP diastolic 58–77
[~2019-07-12] VITALS: Ht 157.5 cm; Wt 123.4 kg
[2019-07-12] MEDS: MEROPENEM 1GM 100 ML IV SCH
[~2019-07-12 08:51] MED LIST changes: -B&O 60MG R/S 60 MG SUPP PR ONE; -CEFTRIAXONE SOD 1 GM/NS 50 ML 50 ML IV ONE; -DEXAMETHASONE SOD PHOS INJ 4 MG/ML VIAL ONE; -FENTANYL CITRATE/PF 100MCG/2 ML INJ ONE; -GENTAMICIN 80MG/NS 100 ML 100 ML IV ONE; -IOPAMIDOL 300MG/ML 50ML INFUS..BTL IV ONE; +LEVOTHYROXINE50 MCG PO; -LIDOCAINE HCL 2% LOCAL INJ 5 ML SDV VIAL INJ ONE; -MIDAZOLAM HCL 2 MG/2 ML VIAL ONE; +NITROFURANTOIN100 MG PO; -ONDANSETRON HCL INJ 2MG/ML 2ML 2 MG/ML VIAL ONE; -PROPOFOL IV EMULSION 10 MG/ML 20 ML VIAL ONE; -SEVOFLURANE INHAL SOLN 250 ML PEN BTL ONE
[2019-07-12] MEDS ORDERED: SODIUM CHLORIDE 0.9% 1000ML 1,000 ML IV STA (09:11)
[2019-07-12] MEDS ORDERED: ONDANSETRON HCL INJ 2MG/ML 2ML 2 MG/ML VIAL IV STA (09:11)
[2019-07-12 10:02] LABS: BASOPHILS # (AUTO) 0.1 (0.0-0.1); BASOPHILS % 0.6 % (0.0-1.0); EOSINOPHILS % 0.2 % (0.0-6.0); HEMATOCRIT 48.6 % (34.2-44.1); HEMOGLOBIN 15.6 g/dL (12.0-16.0); LYMPHOCYTES # (AUTO) 1.3 (1.0-3.2); LYMPHOCYTES % 7.3 % (18.0-39.1); MEAN CORPUSCULAR HEMOGLOBIN 29.1 pg (28-32); MEAN CORPUSCULAR HGB CONC 32.1 g/dL (31-35); MEAN CORPUSCULAR VOLUME 90.7 fL (81-99); MONOCYTES # (AUTO) 1.7 (0.2-0.8); MONOCYTES % 9.8 % (4.4-11.3); NEUTROPHILS # (AUTO) 13.8 (2.1-6.9); NEUTROPHILS % 77.5 % (38.7-80.0); PLATELET COUNT 430 x10e3/uL (140-360); RED BLOOD COUNT 5.36 x10e6/uL (3.6-5.1); RED CELL DISTRIBUTION WIDTH 16.6 % (11.7-14.4)
[2019-07-12 10:15] LABS: STREPTOCOCCUS GRP A ANTIGEN POSITIVE (NEGATIVE)
[2019-07-12 10:23] LABS: INFLUENZAE A&B ANTIGEN (RAPID) NEGATIVE (NEGATIVE)
[2019-07-12] MEDS ORDERED: MEROPENEM 1GM 100 ML IV NR (11:15)
[2019-07-12 11:19] LABS: ALBUMIN 2.7 g/dL (3.5-5.0); ALBUMIN/GLOBULIN RATIO 0.6 (0.8-2.0); ANION GAP 12.6 mmol/L (8-16); CALCIUM 8.5 mg/dL (8.4-10.2); CREATININE, SERUM 1.79 mg/dL (0.57-1.11); MAGNESIUM 2.1 MG/DL (1.3-2.1)
[2019-07-12 11:23] LABS: POTASSIUM 2.6 mmol/L (3.5-5.1)
[2019-07-12 11:32] LABS: CLARITY,URINE CLEAR (CLEAR); COLOR,URINE YELLOW (YELLOW); LEUKOCYTE ESTERASE ,URINE SMALL (NEGATIVE); NITRITE,URINE NEGATIVE (NEGATIVE)
[2019-07-12 11:33] LABS: BILIRUBIN,URINE NEGATIVE (NEGATIVE); KETONES,URINE NEGATIVE (NEGATIVE); PREGNANCY TEST, URINE NEGATIVE (NEGATIVE); PROTEIN,URINE DIPSTICK 2+ (NEGATIVE); URINE UROBILINOGEN 0.2 mg/dL (0.2 - 1)
[2019-07-12 11:40] LABS: BACTERIA,URINE FEW /HPF; EPITHELIAL CELLS,URINE FEW /LPF; WBC,URINE (MAN) 21-50 /HPF (0-5)
[2019-07-12] MEDS ORDERED: SODIUM BICARBONATE 8.4% INJ 50 ML SYR IV NR (11:44)
[2019-07-12] MEDS ORDERED: POTASSIUM CHLORIDE 20 MEQ TAB CR PO ONE (12:00)
[2019-07-12] MEDS ORDERED: ONDANSETRON HCL INJ 2MG/ML 2ML 2 MG/ML VIAL IV PRN (12:00)
[2019-07-12] MEDS ORDERED: SODIUM BICARBONATE 8.4% 150 ML in DEXTROSE 5% 1,000 ML IV ONE (12:15)
[2019-07-12 12:32] LABS: ABG HCO3 4 mmol/L (23-28); ABG PCO2 12 mmHg (41-51); ABG PH 7.09 (7.31-7.41); ABG PO2 188 mmHg (80-105)
--- NOTE | 2019-07-12 12:45 | Diagnostic Imaging Report ---
EXAMINATION: CHEST 2 VIEWS, ABDOMEN 2 VIEW INDICATION: Cough COMPARISON: None FINDINGS: LINES/TUBES:None LUNGS:The lungs are well-inflated. No focal consolidation or pulmonary edema. PLEURA:No pleural effusion or pneumothorax. MEDIASTINUM:The cardiomediastinal silhouette appears normal in size and shape. BONES/SOFT TISSUES:No acute osseous injury. ABDOMEN:Right and left internal nephroureteral stents in place. Stable appearance of multiple calcific densities overlying both kidneys. Nonobstructive bowel gas pattern. No free air. No acute osseous injury. IMPRESSION: No focal pneumonia or pulmonary edema. Right and left internal nephroureteral stents in place. Stable scattered calcific densities overlying both renal silhouettes. Signed by: Tyler Mack MD on 07/12/2019 12:43 PM
[2019-07-12] MEDS: POTASSIUM CHLORIDE 20MEQ/100ML 100 ML IV SCH ×4 (12:57→17:00)
[2019-07-12 15:32] LABS: MAGNESIUM 2.1 MG/DL (1.3-2.1); PHOSPHORUS 3.1 MG/DL (2.3-4.7)
--- NOTE | 2019-07-12 17:27 | NUR ---
PT ADMITTED TO ICU BED 196 FOR IMCU. PT AMBULATED TO BATHROOM. PT C/O WEAKNESS GENERALIZED. 3RD BAG KCL INITIATED AT 1700. CONSULT TO ID CALLED IN. PT EDUCATED FOR 24 HR URINE COLLECTION TO START AT 1900 (PER ). WILL RECHECK BMP AT 1999 AND CALL ON CELL WITH RESULTS PER HIS REQUEST.
--- NOTE | 2019-07-12 18:06 | NUR ---
[id number] sepsis noam./ckd lowk
[2019-07-12] MEDS ORDERED: CEFTRIAXONE SOD 2 GM/NS 100 ML 100 ML IV SCH (21:00)
[2019-07-12 21:06] LABS: ANION GAP 15.8 mmol/L (8-16); CALCIUM 8.7 mg/dL (8.4-10.2); CREATININE, SERUM 1.53 mg/dL (0.57-1.11)
[2019-07-12 21:16] LABS: POTASSIUM 2.8 mmol/L (3.5-5.1)
[2019-07-12] MEDS ORDERED: POTASSIUM CHLORIDE 20 MEQ TAB CR PO NR (21:45)
[2019-07-12] MEDS ORDERED: POTASSIUM CHLORIDE 20MEQ/100ML 200 ML IV ONE (21:45)
--- NOTE | 2019-07-12 22:05 | Consultation ---
DATE OF CONSULTATION: 07/12/2019 HISTORY OF PRESENT ILLNESS: This is a 48-year-old female with a history of recurrent kidney stones since age 19. Also has been diagnosed with renal tubular acidosis, takes Bicitra at home; apparent hyperuricemia, takes allopurinol at home, predominantly follows with Dr. Barnett and gets recurrent lithotripsies and stents and stent replacements. Currently has a left ureteral stent. Went to see Dr. uA's office, found to have UTI. She was recently started on Cipro by Dr. Barnett. Apparently, she was told by Dr. Au's office that the organism in the urine is resistant to quinolones, so henceforth she came here. Currently, awake, alert, sitting up. by bedside. No apparent distress. KUB shows no focal pneumonia. Right and left internal nephroureteral stents in place. Stable scattered calcific densities overlying both renal silhouettes. She denies any fever and chills. Currently sitting up. Denies any history of hypertension, diabetes. Does have hypothyroidism. She also takes potassium pills and Bicitra at home. She used to see Dr. Blum, my associate, but has not followed up with him. She does not know what her baseline serum creatinine is. She is currently awake, alert, sitting up, in no apparent distress. PHYSICAL EXAMINATION: VITAL SIGNS: Blood pressure of 109/73, pulse rate 93, afebrile. HEAD AND NECK: Cornea clear. Oral mucosa moist. Neck veins flat. LUNGS: Relatively clear. HEART: S1 and S2 audible. ABDOMEN: Obese, soft, nontender. No apparent visceromegaly. EXTREMITIES: Lower extremity, no edema. LABORATORY DATA: Labs show sodium 134, potassium 2.6 with a bicarbonate 6, anion gap 12.6 with a creatinine of 1.79. Urinalysis shows urine pH of 7.5 with specific gravity 1.015, 2+ protein, 11-20 RBC, 21-50 WBC. CBC shows white count 17.7 with a hemoglobin 15.6. Her magnesium level is 2.1. IMPRESSION: Normal anion gap metabolic acidosis most likely distal renal tubular acidosis with complicated urinary tract infection, bilateral ureteral stents, elevated white count, acute kidney injury, severely hypokalemic. PLAN: Plan on aggressively replacing potassium, correcting acidosis with IV bicarbonate. We will obtain urine chemistries, urine electrolytes, calculate urine anion gap. I will also obtain 24-hour urine collection for calcium oxalate, citric acid, sodium, phosphorus. I will obtain serum uric acid, phosphorus and magnesium levels. I agree with empiric antibiotics in the form of meropenem and consult Infectious Disease. This is a complicated issue. Please see orders. MD FARHAN Gerber/JOSE /[id number]
[2019-07-12 22:31] LABS: CHLORIDE 120 mmol/L (98-107); SODIUM 140 mmol/L (136-145)
[2019-07-12 22:32] LABS: BLOOD UREA NITROGEN 22 mg/dL (7-26); BUN/CREATININE RATIO 14 (6-25); CALCIUM 8.9 mg/dL (8.4-10.2); EST GLOMERULAR FILTRATION RATE 35 ML/MIN (60-); GLUCOSE 159 mg/dL (74-118)
[2019-07-12 22:33] LABS: CARBON DIOXIDE < 5 mmol/L (22-29)
[2019-07-12] MEDS ORDERED: SODIUM BICARBONATE 8.4% INJ 50 ML SYR IV STA (22:53)
[2019-07-12] MEDS ORDERED: POTASSIUM CHLORIDE 20MEQ/100ML 100 ML IV ONE (23:00)
[2019-07-13] VITALS (12 sets, daily range): BP systolic 95–133; BP diastolic 56–76
--- NOTE | 2019-07-13 00:46 | Consultation ---
DATE OF CONSULTATION: 07/12/2019 REASON FOR CONSULTATION: UTI with multidrug resistant ESBL. HISTORY OF PRESENT ILLNESS: This is a patient, who is a very pleasant 48-year-old female, who has history of recurrent infection, recurrent UTI, renal stone. Apparently, she was recently diagnosed with UTI with ESBL. The patient was admitted for IV antibiotic. She has been seen by Dr. Barnett and Dr. Au. She was on Macrobid. She was on Cipro, but E. coli she grew with ESBL, so she was sent here. She is currently in the intensive care unit, lying in bed. PAST MEDICAL HISTORY: Obesity, hypothyroidism, kidney stones, recurrent UTI, renal tubular necrosis. PAST SURGICAL HISTORY: Lithotripsy, bilateral ureteral stent placement on June 16, 2019. ALLERGIES: NKA. SOCIAL HISTORY: There is no smoking, drug abuse, or alcohol abuse. FAMILY HISTORY: Hypertension. REVIEW OF SYSTEMS: At the present time HEENT: Negative. PULMONARY: Negative. CARDIAC: Negative. : Negative. She is having some bilateral pain in both right and left CVA area, otherwise all within normal limits. Her review of systems, otherwise unremarkable LABORATORY DATA: White count 17.7, hemoglobin 15.6. Her sodium 134, potassium 2.6 with a creatinine of 1.79. MEDICATION LIST: Reviewed. PHYSICAL EXAMINATION: GENERAL: She is currently alert, oriented, does not seem to be in acute distress. VITAL SIGNS: Stable, currently afebrile. HEENT: She is not icteric. NECK: Supple. CHEST: Clear. HEART: S1, S2. ABDOMEN: Soft. Bowel sounds present. No tenderness. EXTREMITIES: No edema. SKIN: No rash. IMPRESSION: 1. Urinary tract infection sepsis with extended-spectrum beta-lactamase. 2. Acute kidney injury, chronic kidney disease from renal stone. 3. We will put her on meropenem 500 mg IV q.12. Would need 14 days of antibiotic. Neurology is following. We will follow. MD TEX Marquez/JOSE /[id number]
--- NOTE | 2019-07-13 01:07 | NUR ---
Unable to document new medication administration times d/t pharmacy/computer error. Sodium bicarb given at 2340.
[2019-07-13] MEDS ORDERED: POTASSIUM CHLORIDE 20MEQ/100ML 100 ML ONE (03:15)
--- NOTE | 2019-07-13 04:06 | NUR ---
Additional bag of KCl (#3) administered at [address] Christianson's orders. Unable to document d/t pharmacy/internet issues.
--- NOTE | 2019-07-13 05:47 | NUR ---
Dr. Au aware of patient's weakness all extremities and only limited movement.
[2019-07-13 06:17] LABS: HEMOGLOBIN 13.1 g/dL (12.0-16.0); RED BLOOD COUNT 4.56 x10e6/uL (3.6-5.1)
[2019-07-13 06:18] LABS: MEAN CORPUSCULAR HEMOGLOBIN 28.7 pg (28-32); MEAN CORPUSCULAR VOLUME 85.5 fL (81-99)
[2019-07-13 06:19] LABS: BASOPHILS % 0.5 % (0.0-1.0); EOSINOPHILS % 0.5 % (0.0-6.0); LYMPHOCYTES % 8.4 % (18.0-39.1); MEAN CORPUSCULAR HGB CONC 33.6 g/dL (31-35); MONOCYTES % 10.3 % (4.4-11.3); NEUTROPHILS % 76.8 % (38.7-80.0); PLATELET COUNT 363 x10e3/uL (140-360)
--- NOTE | 2019-07-13 07:36 | History and Physical ---
REASON FOR ADMISSION: 1. Urinary tract infection. 2. Acute kidney injury or acute renal failure. 3. Hypokalemia. 4. Metabolic acidosis. HISTORY OF PRESENT ILLNESS: The patient is a 48-year-old lady with history of renal tubular acidosis and multiple UTIs and stent placement, who presented with failure to respond to outpatient treatment for urinary tract infection, where she is also found to be having severe hypokalemia as well as severe metabolic acidosis, non-anion gap secondary to her renal tubular acidosis. PAST MEDICAL HISTORY: Significant for renal tubular acidosis, multiple kidney stones. MEDICATIONS: See MAR. ALLERGIES: NONE. SOCIAL HISTORY: Nonsmoker, nondrinker, lives at home. FAMILY HISTORY: Hypertension. PHYSICAL EXAMINATION: VITAL SIGNS: Temperature is 98.3, Pulse 90, blood pressure 123/68, saturations 100% on room air. NECK: Supple. CARDIOVASCULAR: Regular rate and rhythm. LUNGS: Clear to auscultation bilaterally. ABDOMEN: Good bowel sounds. Soft, nontender. EXTREMITIES: No clubbing or cyanosis. NEUROLOGIC: Nonfocal. ASSESSMENT AND PLAN: 1. Sepsis secondary to urinary tract infection. Continue with her meropenem and Infectious Disease is seeing the patient. 2. Severe non-anion gap acidosis, most likely secondary to renal tubular acidosis. She will continue with current care per Renal. 3. Hyperkalemia. Continue to replace as per Renal. 4. Acute kidney injury, acute renal failure. Continue to monitor. Hopefully will improve with fluids. 5. Leukocytosis, continue to monitor after she has been on antibiotics. 6. Morbid obesity with diet. Continue with diet. Please see hospital chart for full details. MD LINDA Winchester/MODL /[id number]
[2019-07-13 07:38] LABS: ALBUMIN 2.5 g/dL (3.5-5.0); ALBUMIN/GLOBULIN RATIO 0.7 (0.8-2.0); ANION GAP 15.8 mmol/L (8-16); CALCIUM 8.3 mg/dL (8.4-10.2); CREATININE, SERUM 1.63 mg/dL (0.57-1.11); POTASSIUM 1.8 mmol/L (3.5-5.1)
[2019-07-13 08:15] LABS: LYMPHOCYTES # (AUTO) 1.2 (1.0-3.2); NEUTROPHILS # (AUTO) 11.3 (2.1-6.9)
[2019-07-13] MEDS ORDERED: POTASSIUM CHLORIDE 20MEQ/100ML 200 ML IV SCH ×2 (08:15→12:15)
[2019-07-13 08:16] LABS: BASOPHILS # (AUTO) 0.1 (0.0-0.1); EOSINOPHILS # (AUTO) 0.1 (0.0-0.4); MONOCYTES # (AUTO) 1.5 (0.2-0.8)
[2019-07-13] MEDS: SODIUM BICARBONATE 650 MG TAB PO SCH ×3 (08:20→21:45)
[2019-07-13] MEDS ORDERED: AMILORIDE HCL 5 MG TAB PO NR ×2 (08:30→16:30)
[2019-07-13] MEDS ORDERED: POTASSIUM CITRATE ER 10 MEQ TAB PO NR (09:00)
[2019-07-13] MEDS ORDERED: SODIUM CHLORIDE IV SCH (09:45)
[2019-07-13] MEDS ORDERED: POTASSIUM PHOSPHATE IV SCH (09:45)
--- NOTE | 2019-07-13 11:50 | NUR ---
PICC tip is at the cavoatrial junction per radiologist, Dr Mack. PICC is OK to use
--- NOTE | 2019-07-13 11:58 | Diagnostic Imaging Report ---
EXAMINATION: CHEST XRAY LINE PLACEMENT INDICATION: Line placement COMPARISON: Chest radiograph 07/12/2019 FINDINGS: LINES/TUBES:Right PICC line terminates at the superior cavoatrial junction. EKG leads overlie the chest. LUNGS:The lung volumes are low. No focal consolidation or pulmonary edema. PLEURA:No pleural effusion or pneumothorax. MEDIASTINUM:The cardiomediastinal silhouette appears normal in size and shape. BONES/SOFT TISSUES:No acute osseous injury. ABDOMEN:No free air under the diaphragm. IMPRESSION: Right PICC line terminates at the superior cavoatrial junction. No focal pneumonia or pulmonary edema. Signed by: Tyler Mack MD on 07/13/2019 11:56 AM
[2019-07-13] MEDS: MEROPENEM 1GM 100 ML IV SCH ×3 (12:03→23:48)
[2019-07-13 12:21] LABS: CLARITY,URINE CLEAR (CLEAR); COLOR,URINE STRAW (YELLOW); KETONES,URINE NEGATIVE (NEGATIVE); LEUKOCYTE ESTERASE ,URINE MODERATE (NEGATIVE); NITRITE,URINE NEGATIVE (NEGATIVE); PROTEIN,URINE DIPSTICK 1+ (NEGATIVE); URINE UROBILINOGEN 0.2 mg/dL (0.2 - 1)
[2019-07-13 12:22] LABS: BILIRUBIN,URINE NEGATIVE (NEGATIVE)
[2019-07-13 12:27] LABS: BACTERIA,URINE RARE /HPF; EPITHELIAL CELLS,URINE FEW /LPF; POTASSIUM,URINE 21.7 mmol/L; RBC,URINE >50 /HPF (0-5); WBC,URINE (MAN) 21-50 /HPF (0-5)
--- NOTE | 2019-07-13 12:55 | Diagnostic Imaging Report ---
EXAM: Renal Ultrasound INDICATION: Urinary tract infection COMPARISON: CT abdomen and pelvis of 01/10/2019 , KUB of 07/12/2019 TECHNIQUE: Transverse and longitudinal images of the kidneys and bladder were obtained. FINDINGS: Right Kidney: Length: 8.2 cm Appearance: Normal echogenicity. Collecting system: No hydronephrosis Stones: Medullary nephrocalcinosis as seen on prior CT. Cyst/Mass: None Left Kidney: Length: 8.6 cm Appearance: Normal echogenicity. Collecting system: No hydronephrosis Stones: Medullary nephrocalcinosis as seen on prior CT. Cyst/Mass: 2.2 x 1.7 cm lower pole simple cyst. Bladder: Decompressed. IMPRESSION: No hydronephrosis. 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 Signed by: Tyler Mack MD on 07/13/2019 12:53 PM
--- NOTE | 2019-07-13 14:11 | NUR ---
Nutrition Intervention Note RD Recommendation(s) for Physician: - Continue current diet - Recommend Ensure Compact TID for adequacy - Continue to monitor BMP with Mg and Phos, replace low lytes as needed Plan of Care: RD following, monitoring for tolerance and adequacy Nutrition reason for involvement: Nutrition Risk Trigger- [facility] RD Assessment 07/13: 48 YOF admitted for recurrent UTI with recent hx of stent placement last month, seen today per [facility] 2 screen. Pt reports poor appetite and decreased intake x 2 weeks, reports that "food doesn't taste good" and that she is averse to meat and "heavy" foods, just wanting to drink water and eat fruit. Pt denies any GI distress. Pt can not recall UBW, noted wt of 245# 6 mo ago per prior admit, no significant change noted. pt receptive to Ensure compact- RD to order. Pt with no questions or concerns at time of visit. Pt discussed during am rounds, lytes replaced- pt hypokalemic. Will continue to monitor. Principal Problems/Diagnoses: UTI, ureteral stents PMH: obesity, hypothyroidism, recurrent UTI, kidney stones, renal tubular acidosis GI: WDL Skin: intact Labs: 07/13: Na 144, K 1.8, BUN 21, Cr 1.63, Gluc 150, Phos 1.2, Mg 2 Meds: K citrate, KCl IVPB, zofran, abx K Phos IVPB, bicarb drip Ht: 62 in Wt: 239.56 lb BMI: 43.8 kg/m2 IBW: 110 lb Malnutrition Evaluation (07/13/19) The patient does not meet criteria for a specified degree of malnutrition at this time. Will re-evaluate at follow-up as appropriate. Energy intake: <50% of estimated energy requirements for >5 days Weight loss: No wt loss Fat loss: none observed, ample skinfold thickness Muscle loss: none observed, shoulder round Supporting Evidence: Fluid accumulation: none observed Functional Status: not assessed Nutrition Prescription (Diet Order): Cardiac Estimated Nutritional Needs: 7329-3563 calories/day (22-25 kcal/kg IBW) 75-100 g protein/day (1.5-2 g pro/kg IBW) Diet Adequacy: Not meeting calorie needs, Not meeting protein needs Diet Tolerance: Diet Education Needs Assessment: Diet education not indicated at this time Nutrition Care Level: mod Nutrition Diagnosis: Inadequate energy and protein intake related to recurrent UTI as evidenced by decreased appetite and po intake x 2 weeks. Goal: Patient will meet 75-100% of estimated needs by follow up Progress: N/A Interventions: -Mineral, fat modified diet, Commercial beverage, Prescription medications, Collaboration with other providers Monitoring/Evaluation: -Total energy intake, Total protein intake, IVF, Prescription medication, Modified diet, Liquid supplement Signed: Leonora Garcia RD, [place], [facility]
[2019-07-13] MEDS ORDERED: HYDROCODONE/APAP 10MG-325MG TAB PO PRN (15:00)
[2019-07-13 15:53] LABS: ANION GAP 14.8 mmol/L (8-16); CALCIUM 7.5 mg/dL (8.4-10.2); CREATININE, SERUM 1.43 mg/dL (0.57-1.11); PHOSPHORUS 1.4 MG/DL (2.3-4.7)
[2019-07-13 15:57] LABS: POTASSIUM 1.8 mmol/L (3.5-5.1)
[2019-07-13] MEDS: KCL 20MEQ/.9 SOD CHL 1,000 ML IV SCH (17:11)
--- NOTE | 2019-07-13 17:44 | NUR ---
Dr. Christianson notified of AM lab results, potassium 1.8. gave orders for electrolyte replacements. Orders given to recheck electrolytes in afternoon. Dr. Christianson notified that PICC is ordered and GFR is 34. stated PICC is ok to insert. Consent for PICC line placed in chart. PICC line inserted to R upper arm today. Dr. Christianson notified of afternoon lab results including potassium 1.8, see EMAR for orders. Urine specimen sent for urine potassium and UA. Pt complaining of neck pain, Dr. Au notified and gave orders for pain medication. Pt wants to wait till later tonight to take pain medication at this time. Pt had 1 bowel movement. Urine being collected for 24 urine collection. Pt transferred to [facility] room 188. Will continue to monitor the patient, does not appear to be in any s/s of distress at this time.
[2019-07-13 20:27] LABS: ANION GAP 12.7 mmol/L (8-16); CALCIUM 7.2 mg/dL (8.4-10.2); CREATININE, SERUM 1.29 mg/dL (0.57-1.11)
[2019-07-13 20:30] LABS: POTASSIUM 1.7 mmol/L (3.5-5.1)
[2019-07-13] MEDS: HEPARIN SOD (PORCINE) 5,000 UNIT/ML VIAL SC SCH (21:00)
[2019-07-13] MEDS: POTASSIUM CITRATE ER 10 MEQ TAB PO SCH (21:45)
[2019-07-13] MEDS ORDERED: POTASSIUM CHLORIDE 20MEQ/100ML 100 ML IV ONE (22:00)
[2019-07-14] VITALS (25 sets, daily range): BP systolic 89–121; BP diastolic 51–88
[2019-07-14 02:28] LABS: PARTIAL THROMBOPLASTIN TIME 48.1 seconds (23.8-35.5)
[2019-07-14 02:32] LABS: ANION GAP 14.4 mmol/L (8-16); CALCIUM 7.3 mg/dL (8.4-10.2); CREATININE, SERUM 1.29 mg/dL (0.57-1.11)
[2019-07-14 02:36] LABS: POTASSIUM 2.4 mmol/L (3.5-5.1)
--- NOTE | 2019-07-14 02:55 | NUR ---
Dr. Christianson notified of K 2.4 at 0256. No new orders received.
[2019-07-14 03:30] LABS: PROTHROMBIN TIME 16.1 seconds (11.9-14.5)
[2019-07-14 03:31] LABS: INR 1.26
[2019-07-14] MEDS: HEPARIN SOD (PORCINE) 5,000 UNIT/ML VIAL SC SCH ×2 (05:08→20:58)
--- NOTE | 2019-07-14 05:26 | Progress Note ---
DATE: 07/14/2019 SUBJECTIVE: The patient did well overnight and feels a little bit better, but still overall has significant electrolyte imbalances. OBJECTIVE: VITAL SIGNS: Temperature 98.8, pulse 86, blood pressure 96/62, sats 97%. GENERAL: She is no apparent distress, lying in bed. CARDIOVASCULAR: Regular rate and rhythm. LUNGS: Clear to auscultation bilaterally. ABDOMEN: Good bowel sounds. Soft, nontender. EXTREMITIES: No clubbing, cyanosis. NEUROLOGIC: Nonfocal. ASSESSMENT AND PLAN: 1. Sepsis secondary to urinary tract infection. Continue with antibiotics, Dr. Hoskins is following. 2. Hypokalemia. Continue to replace. 3. Metabolic acidosis. Continue to current care since that is improving. 4. Hypophosphatemia. Continue to replace. 5. Leukocytosis. Continue to monitor. 6. Hypotension. Continue to monitor since she is asymptomatic. 7. Acute kidney injury. Continue to monitor . 8. Morbid obesity, diet controlled. Please see hospital chart for full details. MD LINDA Winchester/MODL /[id number]
[2019-07-14 05:41] LABS: BASOPHILS # (AUTO) 0.1 (0.0-0.1); BASOPHILS % 0.4 % (0.0-1.0); EOSINOPHILS # (AUTO) 0.1 (0.0-0.4); EOSINOPHILS % 0.7 % (0.0-6.0); HEMATOCRIT 34.3 % (34.2-44.1); HEMOGLOBIN 11.3 g/dL (12.0-16.0); LYMPHOCYTES # (AUTO) 1.8 (1.0-3.2); LYMPHOCYTES % 12.7 % (18.0-39.1); MEAN CORPUSCULAR HEMOGLOBIN 28.7 pg (28-32); MEAN CORPUSCULAR HGB CONC 32.9 g/dL (31-35); MEAN CORPUSCULAR VOLUME 87.1 fL (81-99); MONOCYTES # (AUTO) 0.9 (0.2-0.8); MONOCYTES % 6.2 % (4.4-11.3); NEUTROPHILS % 77.7 % (38.7-80.0); PLATELET COUNT 319 x10e3/uL (140-360); RED BLOOD COUNT 3.94 x10e6/uL (3.6-5.1)
[2019-07-14] MEDS ORDERED: KCL 20MEQ/.9 SOD CHL 1,000 ML IV ONE (07:38)
[2019-07-14] MEDS: KCL 20MEQ/.9 SOD CHL 1,000 ML IV SCH (07:44)
[2019-07-14 07:49] LABS: LYMPHOCYTES % (MANUAL) 13 % (19-48); MONOCYTES % (MANUAL) 7 % (3.4-9.0); NEUTROPHILS % (MANUAL) 80 % (40-74); PLATELET ESTIMATE ADEQUATE; PLATELET MORPHOLOGY COMMENT NORMAL; RBC MORPHOLOGY COMMENT NORMAL
[2019-07-14 08:21] LABS: ALBUMIN 2.2 g/dL (3.5-5.0); ALBUMIN/GLOBULIN RATIO 0.6 (0.8-2.0); ANION GAP 13.4 mmol/L (8-16); CALCIUM 7.1 mg/dL (8.4-10.2); CREATININE, SERUM 1.23 mg/dL (0.57-1.11)
[2019-07-14 08:28] LABS: POTASSIUM 2.4 mmol/L (3.5-5.1)
[2019-07-14 08:42] LABS: MAGNESIUM 1.8 MG/DL (1.3-2.1); PHOSPHORUS 2.3 MG/DL (2.3-4.7)
[2019-07-14] MEDS ORDERED: POTASSIUM CHLORIDE 20MEQ/100ML 300 ML IV ONE (09:30)
[2019-07-14] MEDS ORDERED: MAGNESIUM SULFATE 2GM/50ML 50 ML IV ONE (09:30)
[2019-07-14] MEDS ORDERED: POTASSIUM CITRATE ER 10 MEQ TAB PO ONE (09:40)
[2019-07-14] MEDS ORDERED: AMILORIDE HCL 5 MG TAB PO ONE (09:40)
[2019-07-14] MEDS: POTASSIUM CITRATE ER 10 MEQ TAB PO SCH ×2 (09:55→18:14)
[2019-07-14] MEDS: SODIUM BICARBONATE 650 MG TAB PO SCH ×3 (09:55→20:57)
[2019-07-14 10:21] LABS: CLARITY,URINE SL CLOUDY (CLEAR); COLOR,URINE OTHER (YELLOW); LEUKOCYTE ESTERASE ,URINE MODERATE (NEGATIVE); NITRITE,URINE NEGATIVE (NEGATIVE)
[2019-07-14 10:22] LABS: BILIRUBIN,URINE NEGATIVE (NEGATIVE); KETONES,URINE NEGATIVE (NEGATIVE); PROTEIN,URINE DIPSTICK 1+ (NEGATIVE); URINE UROBILINOGEN 0.2 mg/dL (0.2 - 1)
[2019-07-14 10:27] LABS: BACTERIA,URINE FEW /HPF; EPITHELIAL CELLS,URINE FEW /LPF; RBC,URINE >50 /HPF (0-5); WBC,URINE (MAN) >50 /HPF (0-5)
--- NOTE | 2019-07-14 11:29 | NUR ---
No rn patient care ordered for pt per Dr. Au
[2019-07-14] MEDS: MEROPENEM 1GM 100 ML IV SCH ×2 (14:30→23:37)
--- NOTE | 2019-07-14 14:48 | NUR ---
Straight cath performed by Debbie Cantor RN.
[2019-07-14 15:22] LABS: ALBUMIN 2.2 g/dL (3.5-5.0); ALBUMIN/GLOBULIN RATIO 0.6 (0.8-2.0); ANION GAP 12.3 mmol/L (8-16); CREATININE, SERUM 1.13 mg/dL (0.57-1.11); MAGNESIUM 2.3 MG/DL (1.3-2.1); PHOSPHORUS 0.8 MG/DL (2.3-4.7)
[2019-07-14 15:26] LABS: POTASSIUM 3.3 mmol/L (3.5-5.1)
[2019-07-14] MEDS ORDERED: POTASSIUM PHOSPHATE 40 MM in SODIUM CHLORIDE 0.9% 250ML 250 ML IV ONE (18:00)
--- NOTE | 2019-07-14 18:45 | NUR ---
Report received. Assumed care. Assessment done. See interventions. Room air with sats 100%. Purewick external cath in place with blood tinged urine.
--- NOTE | 2019-07-14 20:30 | NUR ---
Up to bedside commode for mod soft brown stool.
--- NOTE | 2019-07-14 20:59 | NUR ---
Changed tjck & callum changed out.
[2019-07-15] VITALS (21 sets, daily range): BP systolic 89–121; BP diastolic 59–89
[2019-07-15 00:09] LABS: ALBUMIN 2.1 g/dL (3.5-5.0); ALBUMIN/GLOBULIN RATIO 0.7 (0.8-2.0); ANION GAP 13.3 mmol/L (8-16); MAGNESIUM 1.9 MG/DL (1.3-2.1); PHOSPHORUS 3.1 MG/DL (2.3-4.7); POTASSIUM 3.3 mmol/L (3.5-5.1)
[2019-07-15 00:23] LABS: CALCIUM 6.8 mg/dL (8.4-10.2)
[2019-07-15] MEDS ORDERED: KCL 20MEQ/.9 SOD CHL 1,000 ML IV ONE (00:30)
[2019-07-15] MEDS: KCL 20MEQ/.9 SOD CHL 1,000 ML IV SCH ×2 (00:32→18:15)
--- NOTE | 2019-07-15 00:40 | NUR ---
Call to Dr. Roca (o/c for Dr. Christianson). Awaiting call back.
[2019-07-15] MEDS ORDERED: POTASSIUM CHLORIDE 20 MEQ TAB CR PO STA (00:44)
[2019-07-15] MEDS ORDERED: POTASSIUM CHLORIDE 20MEQ/100ML 100 ML IV ONE (00:45)
--- NOTE | 2019-07-15 00:48 | NUR ---
Dr. Roca called back. Advised of labs. Orders given.
--- NOTE | 2019-07-15 00:50 | NUR ---
KCL 40 mEq po and 20 mEq IV given.
[2019-07-15 05:22] LABS: MAGNESIUM 1.9 MG/DL (1.3-2.1)
[2019-07-15 05:51] LABS: ALANINE AMINOTRANSFERASE 13 IU/L (0-55); ALBUMIN 2.1 g/dL (3.5-5.0); ALBUMIN/GLOBULIN RATIO 0.6 (0.8-2.0); ALKALINE PHOSPHATASE 82 IU/L (40-150); ANION GAP 9.5 mmol/L (8-16); BLOOD UREA NITROGEN 10 mg/dL (7-26); BUN/CREATININE RATIO 11 (6-25); CARBON DIOXIDE 20 mmol/L (22-29); CHLORIDE 114 mmol/L (98-107); CREATININE, SERUM 0.91 mg/dL (0.57-1.11); EST GLOMERULAR FILTRATION RATE > 60 ML/MIN (60-); GLUCOSE 93 mg/dL (74-118); PHOSPHORUS 2.6 MG/DL (2.3-4.7); POTASSIUM 3.5 mmol/L (3.5-5.1); SODIUM 140 mmol/L (136-145)
[2019-07-15 05:53] LABS: CALCIUM 6.8 mg/dL (8.4-10.2)
--- NOTE | 2019-07-15 06:27 | NUR ---
Call to Dr. Christianson re: am labs. Awaiting call back.
--- NOTE | 2019-07-15 06:43 | Progress Note ---
DATE: 07/15/2019 SUBJECTIVE: The patient did well overnight. She said she is feeling a bit better and stronger. OBJECTIVE: VITAL SIGNS: Temperature 98.8, pulse 80, blood pressure 97/64, and sats 97% on room air. GENERAL: She is in no apparent distress, lying in bed. CARDIOVASCULAR: Regular rate and rhythm. LUNGS: Clear to auscultation bilaterally. ABDOMEN: Good bowel sounds. Soft, nontender. EXTREMITIES: No clubbing, cyanosis. NEUROLOGIC: Nonfocal. ASSESSMENT AND PLAN: 1. Sepsis secondary to urinary tract infection. Continue with antibiotics. 2. Hypokalemia. We will check her labs. 3. Acute kidney injury has resolved, so continue with current care. 4. Leukocytosis. Continue to monitor. 5. Renal tubular acidosis. Continue with current care for her renal. Please see hospital chart for full details. MD LINDA Winchester/JOSE /[id number]
[2019-07-15] MEDS ORDERED: CALCIUM GLUCONATE 10% INJ 4.65 MEQ in SODIUM CHLORIDE 0.9% 50ML 50 ML IV ONE (08:15)
[2019-07-15] MEDS ORDERED: AMILORIDE HCL 5 MG TAB PO ONE (08:15)
[2019-07-15] MEDS: HEPARIN SOD (PORCINE) 5,000 UNIT/ML VIAL SC SCH ×2 (09:00→20:22)
[2019-07-15] MEDS: POTASSIUM CITRATE ER 10 MEQ TAB PO SCH ×2 (09:00→17:00)
[2019-07-15] MEDS: SODIUM BICARBONATE 650 MG TAB PO SCH ×3 (09:00→20:22)
[2019-07-15] MEDS: MEROPENEM 1GM 100 ML IV SCH ×2 (11:00→22:16)
[2019-07-15 13:54] LABS: ALANINE AMINOTRANSFERASE 13 IU/L (0-55); ALBUMIN 2.2 g/dL (3.5-5.0); ALBUMIN/GLOBULIN RATIO 0.6 (0.8-2.0); ALKALINE PHOSPHATASE 87 IU/L (40-150); ANION GAP 11.7 mmol/L (8-16); BLOOD UREA NITROGEN 8 mg/dL (7-26); BUN/CREATININE RATIO 9 (6-25); CALCIUM 7.2 mg/dL (8.4-10.2); CARBON DIOXIDE 19 mmol/L (22-29); CHLORIDE 114 mmol/L (98-107); CREATININE, SERUM 0.86 mg/dL (0.57-1.11); EST GLOMERULAR FILTRATION RATE > 60 ML/MIN (60-); GLUCOSE 127 mg/dL (74-118); MAGNESIUM 1.8 MG/DL (1.3-2.1); PHOSPHORUS 1.8 MG/DL (2.3-4.7); POTASSIUM 3.7 mmol/L (3.5-5.1); SODIUM 141 mmol/L (136-145)
[2019-07-15] MEDS ORDERED: SODIUM CHLORIDE IV ONE (18:00)
[2019-07-15] MEDS ORDERED: POTASSIUM PHOSPHATE IV ONE (18:00)
[2019-07-16] VITALS (28 sets, daily range): BP systolic 85–119; BP diastolic 56–82
[2019-07-16 04:43] LABS: BASOPHILS % 0.4 % (0.0-1.0); EOSINOPHILS # (AUTO) 0.3 (0.0-0.4); EOSINOPHILS % 2.6 % (0.0-6.0); HEMATOCRIT 34.1 % (34.2-44.1); HEMOGLOBIN 10.9 g/dL (12.0-16.0); LYMPHOCYTES # (AUTO) 2.1 (1.0-3.2); LYMPHOCYTES % 19.8 % (18.0-39.1); MONOCYTES # (AUTO) 0.6 (0.2-0.8); NEUTROPHILS # (AUTO) 7.3 (2.1-6.9); PLATELET COUNT 294 x10e3/uL (140-360); RED BLOOD COUNT 3.76 x10e6/uL (3.6-5.1)
[2019-07-16 04:49] LABS: MEAN CORPUSCULAR VOLUME 90.7 fL (81-99)
[2019-07-16 05:01] LABS: ALANINE AMINOTRANSFERASE 13 IU/L (0-55); ALBUMIN 2.1 g/dL (3.5-5.0); ALBUMIN/GLOBULIN RATIO 0.6 (0.8-2.0); ALKALINE PHOSPHATASE 76 IU/L (40-150); ANION GAP 11.6 mmol/L (8-16); BLOOD UREA NITROGEN 9 mg/dL (7-26); BUN/CREATININE RATIO 11 (6-25); CALCIUM 7.3 mg/dL (8.4-10.2); CARBON DIOXIDE 21 mmol/L (22-29); CHLORIDE 112 mmol/L (98-107); CREATININE, SERUM 0.82 mg/dL (0.57-1.11); EST GLOMERULAR FILTRATION RATE > 60 ML/MIN (60-); GLUCOSE 99 mg/dL (74-118); MAGNESIUM 1.7 MG/DL (1.3-2.1); PHOSPHORUS 2.8 MG/DL (2.3-4.7); POTASSIUM 3.6 mmol/L (3.5-5.1); SODIUM 141 mmol/L (136-145)
--- NOTE | 2019-07-16 05:58 | Progress Note ---
DATE: 07/16/2019 SUBJECTIVE: The patient did well overnight and feels much stronger. OBJECTIVE: VITAL SIGNS: Temperature 98.6, pulse 75, blood pressure 100/56, and sats 97% on room air. GENERAL: No apparent distress, lying in bed. CARDIOVASCULAR: Regular rate and rhythm. LUNGS: Clear to auscultation bilaterally. ABDOMEN: Good bowel sounds. Soft and nontender. EXTREMITIES: No clubbing or cyanosis. NEUROLOGIC: Nonfocal. ASSESSMENT/PLAN: 1. Renal tubular acidosis. Continue current care per the renal. 2. Hypokalemia. Continue to monitor. 3. Leukocytosis. Continue to monitor her sepsis. 4. Sepsis secondary to urinary tract infection. Continue with her antibiotic. 5. Hypocalcemia. Continue with her medication. Please see hospital chart for full details. MD LINDA Winchester/JOSE /[id number]
[2019-07-16] MEDS: SODIUM BICARBONATE 650 MG TAB PO SCH (08:42)
[2019-07-16] MEDS: CALCITRIOL 0.25 MCG CAP PO SCH (08:42)
[2019-07-16] MEDS: POTASSIUM CITRATE ER 10 MEQ TAB PO SCH ×2 (08:43→16:35)
[2019-07-16] MEDS: HEPARIN SOD (PORCINE) 5,000 UNIT/ML VIAL SC SCH ×2 (08:49→21:33)
[2019-07-16] MEDS ORDERED: MAGNESIUM SULFATE 2GM/50ML 50 ML IV ONE (08:50)
[2019-07-16] MEDS ORDERED: AMILORIDE HCL 5 MG TAB PO ONE (09:10)
[2019-07-16] MEDS: MEROPENEM 1GM 100 ML IV SCH ×2 (10:30→23:13)
--- NOTE | 2019-07-16 16:35 | NUR ---
Nutrition Reassessment RD Recommendation(s) for Physician: - Continue current diet as ordered Plan of Care: RD following, monitoring for tolerance and adequacy Nutrition reason for involvement: Nutrition Reassessment RD Assessment 07/16: Pt reports that her appetite is much better and is now eating >50% of meals. No N/V or chewing/swallowing issues noted. Pt did not have any questions at time of visit. Will continue to monitor. 07/13: 48 YOF admitted for recurrent UTI with recent hx of stent placement last month, seen today per [facility] 2 screen. Pt reports poor appetite and decreased intake x 2 weeks, reports that "food doesn't taste good" and that she is averse to meat and "heavy" foods, just wanting to drink water and eat fruit. Pt denies any GI distress. Pt can not recall UBW, noted wt of 245# 6 mo ago per prior admit, no significant change noted. pt receptive to Ensure compact- RD to order. Pt with no questions or concerns at time of visit. Pt discussed during am rounds, lytes replaced- pt hypokalemic. Will continue to monitor. Principal Problems/Diagnoses: UTI, ureteral stents PMH: obesity, hypothyroidism, recurrent UTI, kidney stones, renal tubular acidosis GI: last recorded BM 07/15 Skin: intact Labs: 07/16: Na 141, K 3.6, BUN 9, Cr 0.82, Glu 99, Phos 2.8, Mg 1.7 07/13: Na 144, K 1.8, BUN 21, Cr 1.63, Gluc 150, Phos 1.2, Mg 2 Meds: meropenem, heparin, zofran Ht: 62 in Wt: 274 lbs (07/15), 239.56 lb (07/12) - Suspect possible weight error BMI: 50.1 kg/m2 IBW: 110 lb Malnutrition Evaluation (07/16/19) The patient does not meet criteria for a specified degree of malnutrition at this time. Will re-evaluate at follow-up as appropriate. Energy intake: Adequate PO intake reported at this time Weight loss: No wt loss Fat loss: none observed, ample skinfold thickness Muscle loss: none observed, shoulder round Supporting Evidence: Fluid accumulation: none observed Functional Status: not assessed Nutrition Prescription (Diet Order): Regular Estimated Nutritional Needs: 2710-1710 calories/day (22-25 kcal/kg IBW) 75-100 g protein/day (1.5-2 g pro/kg IBW) Diet Adequacy: meeting calorie needs, meeting protein needs Diet Tolerance: tolerating PO Diet Education Needs Assessment: Diet education not indicated at this time, pt is on a regular diet Nutrition Care Level: low Nutrition Diagnosis: Inadequate energy and protein intake related to recurrent UTI as evidenced by decreased appetite and po intake x 2 weeks prior to admission Goal: Patient will meet 75-100% of estimated needs by follow up Progress: Pt reports eating >50% of meals. Interventions: -General, healthy diet Monitoring/Evaluation: -Total energy intake, Total protein intake Signed: Opal Johnson RD, LD
[2019-07-17] VITALS (11 sets, daily range): BP systolic 76–107; BP diastolic 48–77
[2019-07-17 05:54] LABS: ALANINE AMINOTRANSFERASE 16 IU/L (0-55); ALBUMIN 2.3 g/dL (3.5-5.0); ALBUMIN/GLOBULIN RATIO 0.6 (0.8-2.0); ALKALINE PHOSPHATASE 78 IU/L (40-150); ANION GAP 13.3 mmol/L (8-16); BLOOD UREA NITROGEN 8 mg/dL (7-26); BUN/CREATININE RATIO 10 (6-25); CARBON DIOXIDE 20 mmol/L (22-29); CHLORIDE 109 mmol/L (98-107); CREATININE, SERUM 0.79 mg/dL (0.57-1.11); EST GLOMERULAR FILTRATION RATE > 60 ML/MIN (60-); GLUCOSE 90 mg/dL (74-118); POTASSIUM 3.3 mmol/L (3.5-5.1); SODIUM 139 mmol/L (136-145)
[2019-07-17 05:55] LABS: MAGNESIUM 1.9 MG/DL (1.3-2.1)
[2019-07-17] MEDS: POTASSIUM CITRATE ER 10 MEQ TAB PO SCH ×3 (09:21→20:09)
[2019-07-17] MEDS: HEPARIN SOD (PORCINE) 5,000 UNIT/ML VIAL SC SCH ×2 (09:22→20:10)
[2019-07-17] MEDS: MEROPENEM 500MG/ NS 50ML 50 ML IV SCH ×3 (09:22→22:22)
[2019-07-17] MEDS: CALCITRIOL 0.25 MCG CAP PO SCH (09:22)
[2019-07-17] MEDS: AMILORIDE HCL 5 MG TAB PO SCH (09:22)
--- NOTE | 2019-07-17 09:48 | Progress Note ---
DATE: 07/17/2019 SUBJECTIVE: The patient is a 48-year-old lady who came in with leukocytosis, UTI ESBL, also chronic kidney disease, obesity and debility. The patient also has history of hypothyroidism and chronic UTIs. The patient is feeling well. No complaints. No chest pain. No shortness of breath. No nausea, no vomiting. No diarrhea. No dysuria either. PHYSICAL EXAMINATION: VITAL SIGNS: Temperature is 98.2, pulse of 73, respirations of 20, blood pressure is 86/52, pulse oximetry of 97% on room air. HEENT: Normocephalic and atraumatic. Pupils are reactive. The patient has supplemental O2. CVS: S1 and S2 normal. Regular rate and rhythm. LUNGS: Decreased air entry. ABDOMEN: Nontender, nondistended. EXTREMITIES: No clubbing, no cyanosis, no edema. SCDs in place. MEDICATIONS: She is on: 1. Merrem q.12. 2. Heparin for DVT prophylaxis. 3. Potassium. 4. Calcitriol. 5. Hydrocodone as needed. 6. Amiloride 10 mg. LABORATORY VALUES: White count is 10.53, hemoglobin of 10.9, hematocrit of 34.1. Chemistry shows sodium of 139, potassium 3.3, BUN of 8, creatinine of 0.79. Magnesiums have been running low and calcium has been running low. ASSESSMENT: Ms. Greg Martínez with: 1. Renal tubular acidosis, continue current management. 2. Hyperkalemia, continue with replacing potassium. 3. Leukocytosis, resolved. 4. Sepsis, resolved. 5. Hypercalcemia, continue monitoring her lytes. The patient also has UTI, ESBL on Merrem at this time. The patient can be moved over to IMCU or Med/Surg floor and further recommendation per clinical course. She will stay entire term of the weekend. Further recommendations per clinical course. We will continue to monitor the patient along with consultants. MD NANDO Mcginnis/MODL /[id number]
[2019-07-18] VITALS (8 sets, daily range): BP systolic 89–115; BP diastolic 53–69
[2019-07-18] MEDS: MEROPENEM 500MG/ NS 50ML 50 ML IV SCH ×3 (05:24→20:32)
[2019-07-18 05:45] LABS: ANION GAP 12.6 mmol/L (8-16); BLOOD UREA NITROGEN 10 mg/dL (7-26); BUN/CREATININE RATIO 13 (6-25); CALCIUM 8.6 mg/dL (8.4-10.2); CARBON DIOXIDE 21 mmol/L (22-29); CHLORIDE 110 mmol/L (98-107); CREATININE, SERUM 0.75 mg/dL (0.57-1.11); EST GLOMERULAR FILTRATION RATE > 60 ML/MIN (60-); GLUCOSE 85 mg/dL (74-118); MAGNESIUM 1.9 MG/DL (1.3-2.1); POTASSIUM 3.6 mmol/L (3.5-5.1); SODIUM 140 mmol/L (136-145)
[2019-07-18] MEDS: HEPARIN SOD (PORCINE) 5,000 UNIT/ML VIAL SC SCH ×2 (08:57→20:32)
[2019-07-18] MEDS: CALCITRIOL 0.25 MCG CAP PO SCH (08:57)
[2019-07-18] MEDS: AMILORIDE HCL 5 MG TAB PO SCH (08:57)
[2019-07-18] MEDS: POTASSIUM CITRATE ER 10 MEQ TAB PO SCH ×3 (09:01→20:31)
--- NOTE | 2019-07-18 11:08 | Progress Note ---
DATE: 07/18/2019 SUBJECTIVE: A 48-year-old female who comes in with acute tubular necrosis. Currently, the patient is feeling better. No chest pain. No shortness of breath. No dysuria. MEDICATIONS: She is on meropenem, potassium citrate, amiloride 10 mg, hydrocodone as needed, and Zofran as needed. Potassium replacement was done and currently not on potassium replacement. OBJECTIVE: VITAL SIGNS: Temperature is 96.6, pulse of 60, respirations of 14, blood pressure is 103/69, pulse oximetry of 100%. HEENT: Normocephalic and atraumatic. Pupils are reactive to light and accommodation. CVS: S1 and S2 normal. Regular rate and rhythm. ABDOMEN: Nontender and nondistended. EXTREMITIES: No clubbing, no cyanosis, no edema. LABORATORY VALUES: Sodium today was 140, potassium was 3.6, BUN of 10, and creatinine 0.75. ASSESSMENT: Ms. Greg Martínez with: 1. Renal tubular acidosis. Continue current management. 2. Hypokalemia. Potassium replacement on hold. 3. Leukocytosis, resolved. 4. Sepsis, resolved. 5. Hypercalcemia. Continue monitoring her lytes. 6. The patient has also had recent history of stent in the kidneys. PLAN: Further recommendation on clinical course. The patient can be discharged tomorrow after Dr. Christianson, Renal/Nephrology, seeing the patient. MD NANDO Mcginnis/MODL /[id number]
--- NOTE | 2019-07-18 14:05 | NUR ---
Visit made by the Spiritual Care Department Pastoral Visitor, Isma Go. PV provided pastoral presence, hospitality, and supportive listening. Pastoral Visitor informed pt/family of the scope of [employer] and availability. SYMONE HEWITT [employer] Spiritual Care Department O: [phone] Pager: [phone] ([phone] calling from)
[2019-07-19] VITALS: BP 80/52
[2019-07-19 05:00] VITALS: BP 100/65
[2019-07-19] MEDS: MEROPENEM 500MG/ NS 50ML 50 ML IV SCH (05:20)
[2019-07-19 05:45] LABS: BASOPHILS % 0.5 % (0.0-1.0); EOSINOPHILS # (AUTO) 0.2 (0.0-0.4); EOSINOPHILS % 2.7 % (0.0-6.0); HEMATOCRIT 36.2 % (34.2-44.1); HEMOGLOBIN 10.8 g/dL (12.0-16.0); LYMPHOCYTES # (AUTO) 1.9 (1.0-3.2); LYMPHOCYTES % 30.6 % (18.0-39.1); MEAN CORPUSCULAR HEMOGLOBIN 28.5 pg (28-32); MEAN CORPUSCULAR HGB CONC 29.8 g/dL (31-35); MEAN CORPUSCULAR VOLUME 95.5 fL (81-99); MONOCYTES # (AUTO) 0.5 (0.2-0.8); MONOCYTES % 7.3 % (4.4-11.3); NEUTROPHILS # (AUTO) 3.6 (2.1-6.9); NEUTROPHILS % 57.2 % (38.7-80.0); PLATELET COUNT 272 x10e3/uL (140-360); RED BLOOD COUNT 3.79 x10e6/uL (3.6-5.1); RED CELL DISTRIBUTION WIDTH 14.9 % (11.7-14.4)
[2019-07-19 06:51] LABS: ALANINE AMINOTRANSFERASE 18 IU/L (0-55); ALBUMIN 2.4 g/dL (3.5-5.0); ALBUMIN/GLOBULIN RATIO 0.7 (0.8-2.0); ALKALINE PHOSPHATASE 65 IU/L (40-150); ANION GAP 11.6 mmol/L (8-16); BLOOD UREA NITROGEN 11 mg/dL (7-26); BUN/CREATININE RATIO 15 (6-25); CALCIUM 8.6 mg/dL (8.4-10.2); CARBON DIOXIDE 24 mmol/L (22-29); CHLORIDE 110 mmol/L (98-107); CREATININE, SERUM 0.74 mg/dL (0.57-1.11); EST GLOMERULAR FILTRATION RATE > 60 ML/MIN (60-); GLUCOSE 89 mg/dL (74-118); POTASSIUM 3.6 mmol/L (3.5-5.1); SODIUM 142 mmol/L (136-145)
--- NOTE | 2019-07-19 08:06 | NUR ---
Miguel Ángel Setfelix to bedside; oral antibiotic Rx on chart; okay from ID for patient to discharge home.
[2019-07-19 08:45] VITALS: BP 102/69
[2019-07-19] MEDS: HEPARIN SOD (PORCINE) 5,000 UNIT/ML VIAL SC SCH (09:00)
--- NOTE | 2019-07-19 09:31 | NUR ---
Liv Christianson and Vince Barnett to bedside. Okay for patient to discharge home per both physicians.
[2019-07-19] MEDS: AMILORIDE HCL 5 MG TAB PO SCH (09:32)
[2019-07-19] MEDS: CALCITRIOL 0.25 MCG CAP PO SCH (09:32)
[2019-07-19] MEDS: POTASSIUM CITRATE ER 10 MEQ TAB PO SCH (09:50)
--- NOTE | 2019-07-19 11:18 | Progress Note ---
DATE: 07/19/2019 SUBJECTIVE: The patient did well overnight. No new complaints. OBJECTIVE: VITAL SIGNS: Temperature 98.1, pulse 68, blood pressure 96/74, and saturations 100% on room air. GENERAL: No apparent distress. LUNGS: Clear to auscultation bilaterally. CARDIOVASCULAR: Regular rate and rhythm. ABDOMEN: Good bowel sounds. Soft and nontender. EXTREMITIES: No clubbing or cyanosis. NEUROLOGIC: Nonfocal. ASSESSMENT AND PLAN: 1. Renal tubular acidosis. Continue current care per Renal. 2. Hypokalemia. Continue to monitor. 3. Anemia. Continue to monitor. 4. Sepsis secondary to urinary tract infection. Continue with antibiotics. 5. Morbid obesity. Continue with diet. Please see hospital chart for full details. MD LINDA Winchester/MODSalty /[id number]
--- NOTE | 2019-07-19 12:00 | NUR ---
Patient site of discontinued right PICC is clean, dry, intact. Patient understands she will leave the dressing in place until this time tomorrow. Patient discharged home via private vehicle in the care of her .
--- NOTE | 2019-07-25 01:46 | Discharge Summary ---
DISCHARGE DIAGNOSES: 1. Sepsis secondary to urinary tract infection. 2. Hypokalemia. 3. Acute renal failure. 4. Renal tubular acidosis. HISTORY OF PRESENT ILLNESS AND HOSPITAL COURSE: See hospital chart for full details. The patient is a lady with a history of renal tubular acidosis who presented with severe sepsis secondary to urinary tract infection as well as electrolyte imbalance with severe hyperkalemia, so she was brought in placed in the ICU on IV antibiotics as well as IV replacement as well as IV fluids, which helped resolve her acute renal failure. She was seen by Renal and as well as Dr. Barnett, from Urology. Unfortunately, after multiple successful replacement, the patient was able to finally get to baseline with her potassium. At the time of discharge she was feeling really well. She is able to be discharged home with p.o. medications and antibiotics and follow up in 1 to 2 weeks with me as well as Dr. Barnett as well as Dr. Christianson of Renal. Please see hospital chart for full details. MD LINDA Winchester/MODL /[id number]
== END 2019-07-19 12:00 | disposition home or self-care (01) | DRG 872 ==
LOC: ER 08:51 → ERHOLD 11:49 → ICU 15:11 → IMCU 07-13 17:12 → UNDODISIN 07-13 18:57 → ICU 07-13 21:11
PROVIDERS: ADMIT Internal Medicine; ATTEND Internal Medicine
PROC: 02HV33Z Insertion of Infusion Device into Superior Vena Cava, Percutaneous Approach (ICD-10-PCS; principal; 2019-07-12)
DX: A41.9 Sepsis, unspecified organism (principal); N39.0 Urinary tract infection, site not specified; E87.2 Acidosis; N17.9 Acute kidney failure, unspecified; Z68.42 Body mass index [BMI] 45.0-49.9, adult; Z16.12 Extended spectrum beta lactamase (ESBL) resistance; N25.89 Other disorders resulting from impaired renal tubular function; E87.5 Hyperkalemia; E87.6 Hypokalemia; Z96.0 Presence of urogenital implants; E66.01 Morbid (severe) obesity due to excess calories; E87.8 Other disorders of electrolyte and fluid balance, not elsewhere classified; I12.9 Hypertensive chronic kidney disease with stage 1 through stage 4 chronic kidney disease, or unspecified chronic kidney disease; N18.9 Chronic kidney disease, unspecified; B96.20 Unspecified Escherichia coli [E. coli] as the cause of diseases classified elsewhere
CPT/HCPCS: 36415; 36569; 71046; 74019; 76770; 80048; 80053; 81001; 81025; 82310; 82436; 82507; 82533; 82805; 83518; 83605; 83735; 83945; 84100; 84133; 84300; 84443; 84550; 85025; 85610; 85730; 87040; 87086; 87400; 99284; J0610; J0696; J1644; J2405; J3475; J3480; J7030; J7050; J7070

== ENCOUNTER → 2019-08-31 | Day surgery (SDC) | payer OTHER ==
[2019-08-27 13:44] LABS: BASOPHILS # (AUTO) 0.1 (0.0-0.1); BASOPHILS % 0.7 % (0.0-1.0); EOSINOPHILS # (AUTO) 0.1 (0.0-0.4); EOSINOPHILS % 1.3 % (0.0-6.0); HEMATOCRIT 44.3 % (34.2-44.1); HEMOGLOBIN 13.7 g/dL (12.0-16.0); LYMPHOCYTES # (AUTO) 1.4 (1.0-3.2); MEAN CORPUSCULAR HEMOGLOBIN 29.7 pg (28-32); MEAN CORPUSCULAR HGB CONC 30.9 g/dL (31-35); MEAN CORPUSCULAR VOLUME 96.1 fL (81-99); MONOCYTES # (AUTO) 0.4 (0.2-0.8); MONOCYTES % 6.3 % (4.4-11.3); NEUTROPHILS # (AUTO) 4.8 (2.1-6.9); NEUTROPHILS % 70.4 % (38.7-80.0); PLATELET COUNT 215 x10e3/uL (140-360); RED BLOOD COUNT 4.61 x10e6/uL (3.6-5.1); RED CELL DISTRIBUTION WIDTH 13.2 % (11.7-14.4)
[2019-08-27 14:04] LABS: ALANINE AMINOTRANSFERASE 20 IU/L (0-55); ALBUMIN 4.1 g/dL (3.5-5.0); ALBUMIN/GLOBULIN RATIO 1.2 (0.8-2.0); ALKALINE PHOSPHATASE 81 IU/L (40-150); BLOOD UREA NITROGEN 14 mg/dL (7-26); BUN/CREATININE RATIO 15 (6-25); CALCIUM 9.6 mg/dL (8.4-10.2); CARBON DIOXIDE 25 mmol/L (22-29); CHLORIDE 108 mmol/L (98-107); CREATININE, SERUM 0.91 mg/dL (0.57-1.11); EST GLOMERULAR FILTRATION RATE > 60 ML/MIN (60-); GLUCOSE 90 mg/dL (74-118); SODIUM 141 mmol/L (136-145)
--- NOTE | 2019-08-27 14:37 | Diagnostic Imaging Report ---
Exam: KUB - 2 views Indication: Preoperative Comparison: Renal ultrasound of 07/13/2019, KUB of 07/12/2019 Findings: Right and left internal nephroureteral stents in place. Again seen are numerous scattered bilateral renal calculi, more on the right than on the left. Calculi on the the right measuring 5 mm. Calculi on the left measure up to 4 mm. Nonobstructive bowel gas pattern. No free air. No acute osseous injury. Impression: Bilateral renal calculi right greater than left measure up to 5 mm on the right and 4 mm on the left. Bilateral internal nephroureteral stents in place. Signed by: Tyler Mack MD on 08/27/2019 2:34 PM
[~2019-08-31] MED LIST changes: +AMILORIDE; +B&O 60MG R/S 60 MG SUPP PR ONE; +DEXAMETHASONE SOD PHOS INJ 4 MG/ML VIAL ONE; +FENTANYL CITRATE/PF 100MCG/2 ML INJ ONE; +FLONASE; +IOPAMIDOL 300MG/ML 50ML INFUS..BTL IV ONE; +LIDOCAINE HCL 2% LOCAL INJ 5 ML SDV VIAL INJ ONE; +ONDANSETRON HCL INJ 2MG/ML 2ML 2 MG/ML VIAL ONE; +PIPER-TAZ 3.375 GM 50 ML ONE; +PROPOFOL IV EMULSION 10 MG/ML 20 ML VIAL ONE; +SEVOFLURANE INHAL SOLN 250 ML PEN BTL ONE
[2019-08-31 09:20] VITALS: BP 121/65
--- NOTE | 2019-09-01 21:07 | Operative Report ---
DATE OF PROCEDURE: 08/31/2019 SURGEON: Vince Barnett MD PREOPERATIVE DIAGNOSES: 1. Bilateral urolithiasis. 2. Bilateral indwelling ureteral stents. POSTOPERATIVE DIAGNOSES: 1. Bilateral nephrolithiasis. 2. Prior left ureterolithiasis. 3. Bilateral indwelling ureteral stents. 4. Grade 2 cystocele. 5. Grade 3 rectocele. 6. Urethral hypermobility. OPERATION PERFORMED: Note, these were all staged procedures as part of multi-staged and multi-step process in managing the patient's urolithiasis. 1. Left-sided extracorporeal shockwave lithotripsy (separate procedure performed for the left nephrolithiasis). 2. Cystourethroscopy with complicated removal of right indwelling ureteral stent (separate procedure performed for the diagnosis of stent). 3. Right ureteroscopy with stone manipulation (separate procedure performed for the right nephrolithiasis). 4. Left ureteroscopy (separate procedure performed to rule out any left ureterolithiasis). 5. Urological services with supervision and interpretation of ureteroscopy. 6. Retrograde ureteropyelography. 7. Supervision of fluoroscopy, no radiologist present. 8. Pelvic examination under anesthesia. ANESTHESIA: General. COMPLICATIONS: None. CLINICAL SUMMARY: Clemencia Garza is a 48-year-old woman with severe bilateral urolithiasis. She was brought for the above procedure. She was aware of the risks of bleeding, infection, injury to adjacent structures, need for additional procedures, and elected to proceed. OPERATIVE PROCEDURE IN DETAIL: Informed consent was verified. Clemencia Garza was properly identified in the operating room, placed on the lithotripsy table in supine position. Anesthesia was uneventfully begun. The patient's left nephrolithiasis was localized with biplanar fluoroscopy. A total of 3000 shocks were delivered, distributed between the upper calyceal stones and then the lower calyceal stone. Fragmentation was noted. The patient was carefully, gently repositioned in dorsal lithotomy position with all pressure points well padded. Her genitalia were prepared and draped in usual sterile fashion. The cystoscope sheath with obturator in place was atraumatically inserted through the patient's urethra and bladder was drained. Panendoscopy revealed no suspicion for lesions. No tumors, no stones or diverticula. There were stents emerging from both ureteral orifices. A guidewire was then placed into the right ureter and guided to the level of the patient's kidney. The stent was then grasped completely, removed and discarded. Semi-rigid ureteroscope was then placed alongside the guidewire into the right ureter. We then did not identify any stones. Contrast was injected. The flexible ureteroscope was then placed over the guidewire and guided to the level of the patient's kidney. Panendoscopy revealed Hector's plaque throughout the entire kidney. There was only one small stone that was loose and could be extracted. We grasped it with Nitinol tipless basket and extracted it atraumatically. A guidewire was then placed in the left ureter and retrograde ureteral pyelograms were performed. The left-sided indwelling ureteral stent was grasped, pulled out to the urethral meatus and discarded. Flexible ureteroscope was then placed over the guidewire and guided to the patient's proximal ureter and kidney. We carefully examined the ureter. It exhibited no stones, no strictures, no evidence of obstruction. Therefore, due to the fact that the patient's left nephrolithiasis now fragmented into smaller fragments to easily pass, there is no need for re-stenting. Interpretation of retrograde ureteropyelography contrast was instilled in retrograde fashion bilaterally. There was bilateral upper pole fullness. The ureters were unremarkable. Unobstructed drainage was observed fluoroscopically. There were filling defects in the left upper and lower pole calyces. It correspond to stone debris as well as blood clots from lithotripsy. The patient's bladder was drained. Cystoscope was withdrawn. Pelvic examination revealed a grade 2 cystocele, grade 3 rectocele. There was urethral hypomobility. No abnormal palpable pelvic masses could be appreciated. There were no obvious mucosal lesions. The patient was then uneventfully reversed from anesthesia and taken to recovery in stable condition. Explicit postop instructions were given and we will follow the patient up in the office and of course on the long-term basis. Vince Barnett MD [place]/MODL /[id number] cc: Lavon Au MD
== END | disposition home or self-care (01) ==
LOC: OR 05:44
PROVIDERS: ATTEND Urology
DX: N20.0 Calculus of kidney (principal); Z46.6 Encounter for fitting and adjustment of urinary device; N81.10 Cystocele, unspecified; N81.6 Rectocele; N36.41 Hypermobility of urethra; N28.89 Other specified disorders of kidney and ureter; E03.9 Hypothyroidism, unspecified; E66.9 Obesity, unspecified; Z01.818 Encounter for other preprocedural examination
CPT/HCPCS: 36415; 50590; 52352; 74018; 80053; 81025; 84550; 85025; 88300; C1769; J1100; J2001; J2405; J2543; J2704; J3010; Q9967

== ENCOUNTER → 2021-03-16 | Outpatient (CLI) | payer OTHER ==
[~2021-03-16] MED LIST changes: -B&O 60MG R/S 60 MG SUPP PR ONE; -DEXAMETHASONE SOD PHOS INJ 4 MG/ML VIAL ONE; -FENTANYL CITRATE/PF 100MCG/2 ML INJ ONE; -IOPAMIDOL 300MG/ML 50ML INFUS..BTL IV ONE; -LIDOCAINE HCL 2% LOCAL INJ 5 ML SDV VIAL INJ ONE; -ONDANSETRON HCL INJ 2MG/ML 2ML 2 MG/ML VIAL ONE; -PIPER-TAZ 3.375 GM 50 ML ONE; -PROPOFOL IV EMULSION 10 MG/ML 20 ML VIAL ONE; -SEVOFLURANE INHAL SOLN 250 ML PEN BTL ONE
== END ==
LOC: US 13:51
PROVIDERS: ATTEND Urology
DX: N39.0 Urinary tract infection, site not specified (principal)
CPT/HCPCS: 74018; 76770

== ENCOUNTER → 2022-10-02 | Outpatient (CLI) | payer OTHER | LOC: CT 12:17 | PROVIDERS: ATTEND Urology | DX: N20.0 Calculus of kidney (principal) | CPT/HCPCS: 74176; 81025 ==